=== PATIENT | male | born 1965 | race African-American/Black ===

== ENCOUNTER 2021-04-11 11:50 | Inpatient (IN) | payer OTHER ==
[~2021-04-11] VITALS: Ht 170.2 cm; Wt 83.0 kg
[2021-04-11] MEDS ORDERED: LORAZEPAM 1 MG TABLET FOR AGITATION/ANXIETY PO PRN (13:00)
[2021-04-11] MEDS ORDERED: MAGNESIUM HYDROXIDE 30 ML UDC PO PRN (15:30)
[2021-04-11] MEDS ORDERED: ACETAMINOPHEN ES 500 MG TABLET PO PRN (15:30)
[2021-04-11] MEDS ORDERED: IBUPROFEN 200 MG TABLET PO PRN (15:30)
--- NOTE | 2021-04-11 15:33 | NUR ---
GPS/RN RECEIVED MEDICAL TRIAL PT AMBULATORY A/O X 4 NO DISTRESS NOTED. ON FACE TO FACE ASSESSMENT NO SI OR HI REPORTED. ADMITTING ORDERER FROM DR RATLIFF RECEIVED AND CARRIED OUT. ORIENTED TO THE UNIT.
--- NOTE | 2021-04-11 15:41 | NUR ---
Rapid covid test done by me NEGATIVE result, sent official result to laboratory
--- NOTE | 2021-04-11 15:54 | NUR ---
Gave Rapid result specimen given to [facility]
[2021-04-11 16:00] VITALS: BP 142/70
--- NOTE | 2021-04-11 19:30 | NUR ---
GPS RN NOTE, RECEIVED PATIENT AWAKE AND IN BED, NO S/S OR COMPLAINTS OF PAIN AT THIS TIME. PATIENT IS DISPLAYING NO S/S OF APPARENT DISTRESS AT THIS TIME. PATIENT BREATHING IS UNLABORED WITH EQUAL RISE AND FALL OF THE CHEST. PATIENT IS ALERT AND ORIENTED X 3 ON ROOM AIR WITH A SPO2 98%. PATIENT IS COMPLIANT WITH MEDICATIONS, PARANOID, CALM, AND COOPERATIVE. PATIENT DENIES SUICIDAL AND HOMICIDAL IDEATIONS AT THIS TIME. PATIENT EDUCATED ON THE USE OF THE CALL GUY. PATIENT BED SIDE RAILS UP X 2 FOR SAFETY. PATIENT BED IS LOCKED, LOW, WITH BED ALARM ON. WILL CONTINUE TO MONITOR THIS PATIENT Q15 MINUTES WITH THE HELP OF STAFF TO MAINTAIN SAFETY.
[2021-04-11 21:18] VITALS: BP_SYST 129; BP_SYST 154; BP_DIAS 75; BP_DIAS 88
[2021-04-11] MEDS: RISPERDAL 3 MG PO SCH (21:32)
[2021-04-11] MEDS: ZOLPIDEM TARTRATE 10 MG TABLET PO PRN (22:16)
--- NOTE | 2021-04-11 22:17 | NUR ---
GPS RN NOTE, PATIENT HAS A COMPLAINT OF NOT BEING ABLE TO SLEEP AND IS REQUESTING AMBIEN AT THIS TIME. PATIENT VITAL SIGNS ARE STABLE. GAVE AMBIEN 10MG PO HS PRN ORDERED. WILL REASSESS FOR INSOMNIA AND I WILL CONTINUE TO MONITOR THIS PATIENT WITH THE HELP OF STAFF.
[2021-04-12 08:00] VITALS: BP 127/74
[2021-04-12] MEDS: AMLODIPINE BESYLATE 5 MG TABLET PO SCH (08:42)
--- NOTE | 2021-04-12 09:11 | NUR ---
Received pt. denita in his room, responsive to staffs, no distress and no agitation noted. Ate 100% for breakfst and compliant on meds. Pt. went for fresh air break, needs attended and will continue to monitor for safety.
[2021-04-12 16:00] VITALS: BP 135/30
[2021-04-12 20:07] VITALS: BP 102/64
[2021-04-12] MEDS: RISPERDAL 3 MG PO SCH (21:21)
[2021-04-12] MEDS: ZOLPIDEM TARTRATE 10 MG TABLET PO PRN (21:21)
[2021-04-13 08:00] VITALS: BP 139/79
[2021-04-13] MEDS: AMLODIPINE BESYLATE 5 MG TABLET PO SCH (08:48)
--- NOTE | 2021-04-13 15:17 | NUR ---
RN-CO: PATIENT IS CALM AND COOPERATIVE TO CARE, VISIBLE IN THE UNIT HE WATCHES TV MOST OF THE TIME AND LISTENS TO MUSIC. HE IS A LITTLE GUARDED TO STAFF AND PEERS. PT SLEPT 8 HOURS AND ATE > 80% OF EACH MEAL.
[2021-04-13 16:00] VITALS: BP 144/86
--- NOTE | 2021-04-13 19:50 | NUR ---
GPS RN NOTES: RECEIVED PATIENT SITTING IN HALLWAY, AWAKE, ALERT AND ORIENTED X3. CALM AND COOPERATIVE, PASSIVE. DENIES SI/HI AT THIS TIME. DENIES PAIN. NO S/S OF DISTRESS, RESPIRATION EVEN AND UNLABORED WITH EQUAL RISE AND FALL OF THE CHEST, ON ROOM AIR. WILL CONTINUE TO MONITOR Q15 FOR SAFETY, MOOD AND BEHAVIOR.
[2021-04-13 20:00] VITALS: BP 112/61
[2021-04-13] MEDS: ZOLPIDEM TARTRATE 10 MG TABLET PO PRN (21:56)
--- NOTE | 2021-04-13 21:58 | NUR ---
GPS RN NOTES: PATIENT REQUESTED FOR SLEEP MEDICATION. AMBIEN 10MG GIVEN PO PRN ORDERED AT 2156. WILL CONTINUE TO MONITOR.
[2021-04-13] MEDS ORDERED: risperiDONE 1 MG TABLET PO SCH (22:00)
--- NOTE | 2021-04-14 06:38 | NUR ---
GPS RN CLOSING NOTES: PATIENT IS AWAKE, A/O X3. PATIENT SLEPT 6HRS THIS SHIFT. PATIENT WENT OUT OF THE UNIT TWICE FOR FRESH AIR BREAKS THIS SHIFT. NO BEHAVIORAL ISSUES THIS SHIFT. PATIENT HAS NO S/S OF DISTRESS. RESPIRATION EVEN AND UNLABORED WITH EQUAL RISE AND FALL OF THE CHEST, ON ROOM AIR. ALL PATIENT CARE NEEDS HAVE BEEN MET ANTICIPATED. WILL CONTINUE TO MONITOR AND ENDORSE TO AM SHIFT.
[2021-04-14 08:18] VITALS: BP 117/70
[2021-04-14] MEDS: AMLODIPINE BESYLATE 5 MG TABLET PO SCH (09:01)
[2021-04-14 16:24] VITALS: BP 108/54
--- NOTE | 2021-04-14 17:38 | NUR ---
RN-CO: DR RATLIFF STATED THAT HE WILL GIVE MORE ORDERS IF PT'S LABS ARE TAKEN.
[2021-04-14 20:00] VITALS: BP 100/54
--- NOTE | 2021-04-14 20:13 | NUR ---
GPS-RN NOTES: RECEIVED PATIENT IN HIS ROOM, AWAKE, ALERT AND ORIENTED X3. NO S/SX OF ACUTE RESPIRATORY DISTRESS NOTED. PATIENT IS COOPERATIVE AND PLEASANT. PT DENIES ANY SI/HI AT THIS TIME. DENIES AUDITORY/VISUAL HALLUCINATIONS. PATIENT IS CURRENTLY ON INVESTIGATIONAL MEDICATION WITH NO ADVERSE REACTIONS NOTED. NO C/O PAIN OR DISCOMFORT AT THIS TIME. SAFETY PRECAUTIONS IN PLACE. WILL CONTINUE TO MONITOR Q15MIN ROUNDS FOR SAFETY AND BEHAVIOR. Addendum: 04/15/21 at 0234 by NATHANIEL PRITCHARD RN WRONG DOCUMENTATION - PATIENT IS CURRENTLY ON INVESTIGATIONAL MEDICATION WITH NO ADVERSE REACTIONS NOTED.
[2021-04-14] MEDS: RISPERDAL 3 MG PO SCH (21:22)
[2021-04-14] MEDS: ZOLPIDEM TARTRATE 10 MG TABLET PO PRN (21:55)
--- NOTE | 2021-04-14 21:56 | NUR ---
GPS-RN NOTES: INSOMNIA PATIENT C/O INABILITY TO SLEEP. PRN AMBIEN 10MG PO GIVEN ORDERED. WILL CONTINUE TO MONITOR.
[2021-04-15 08:00] VITALS: BP 123/70
[2021-04-15] MEDS: AMLODIPINE 5 MG PO SCH (09:36)
[2021-04-15 16:00] VITALS: BP 122/70
--- NOTE | 2021-04-15 20:12 | NUR ---
GPS-RN NOTES: RECEIVED PATIENT IN HIS ROOM, AWAKE, ALERT AND ORIENTED X3. NO S/SX OF ACUTE RESPIRATORY DISTRESS NOTED. PATIENT IS COOPERATIVE AND PLEASANT. PATIENT DENIES ANY SI OR HI AT THIS TIME. PATIENT ADMITS TO HEARING VOICES. PT STATES, HE HEARS SOMEONE IS TALKING. NO C/O PAIN OR DISCOMFORT AT THIS TIME. SAFETY PRECAUTIONS IN PLACE. WILL CONTINUE TO MONITOR Q15MIN ROUNDS FOR SAFETY AND BEHAVIOR.
[2021-04-15] MEDS: RISPERDAL 3 MG PO SCH (21:10)
[2021-04-15] MEDS: ZOLPIDEM TARTRATE 10 MG TABLET PO PRN (21:43)
--- NOTE | 2021-04-15 21:43 | NUR ---
GPS-RN NOTES: INSOMNIA PATIENT C/O INABILITY TO SLEEP. PRN AMBIEN 10MG PO GIVEN ORDERED. WILL CONTINUE TO MONITOR.
[2021-04-16 08:00] VITALS: BP 143/78
[2021-04-16] MEDS: AMLODIPINE 5 MG PO SCH (08:04)
--- NOTE | 2021-04-16 09:15 | NUR ---
RN-CO: RECEIVED PATIENT AWAKE. DENIED PAIN AND DISCOMFORTS. COMPLIANT WITH MEDICATIONS AND TREATMENT. HE STATED THAT HE STILL HEARS "VOICES" TELLING HIM DIFFERENT THINGS BUT HE REFUSED TO ELABORATE. HE ALSO SAID THAT HE SEES PEOPLE WITH MASKS IN HIS ROOM. I WILL CONTINUE TO MONITOR AND NOTIFY .
[2021-04-16 16:00] VITALS: BP 121/72
--- NOTE | 2021-04-16 19:48 | NUR ---
GPS RN NOTES RECEIVED STANDING BY THE HALLWAY LISTENING TO MUSIC,A/O X4,AMBULATORY,DENIES ANY DISCOMFORTS,ASKING ONLY FOR SLEEPING PILL TONIGHT.WILL CONTINUE TO MONITOR BEHAVIOR.
--- NOTE | 2021-04-16 19:51 | NUR ---
GPS RN NOTES WENT DOWN TO SMOKE
[2021-04-16 20:00] VITALS: BP 121/73
--- NOTE | 2021-04-16 20:35 | NUR ---
GPS RN NOTES BACK TO UNIT AFTER SMOKING
[2021-04-16] MEDS: RISPERDAL 3 MG PO SCH (21:19)
[2021-04-16] MEDS: ZOLPIDEM TARTRATE 10 MG TABLET PO PRN (21:21)
--- NOTE | 2021-04-16 21:21 | NUR ---
GPS RN NOTES CLINICAL TRIAL DUE PO MEDS ADMINISTERED ALONG WITH SLEEPING PILL AMBIEN 10MG PO PER PATIENT REQUEST.HE WANTS TO SLEEP EARLY
[2021-04-16 21:29] VITALS: BP 121/73
--- NOTE | 2021-04-17 01:07 | NUR ---
GPS RN NOTES IN ROOM SLEEPING
[2021-04-17 08:00] VITALS: BP 123/73
[2021-04-17] MEDS: AMLODIPINE 5 MG PO SCH (08:10)
--- NOTE | 2021-04-17 09:15 | NUR ---
Received pt. awake in his room, responsive to staffs, no distress and no agitation noted. ate 100% for breakfast, compliant on meds. Pt. went for fresh air break and needs attended. Will continue to monitor for safety.
[2021-04-17] MEDS ORDERED: LORAZEPAM 1 MG TABLET FOR AGITATION/ANXIETY PO PRN (15:00)
[2021-04-17 16:00] VITALS: BP 128/64
[2021-04-17 20:00] VITALS: BP 120/72
[2021-04-17 20:05] VITALS: BP 120/72
[2021-04-17] MEDS: ZOLPIDEM TARTRATE 10 MG TABLET PO PRN (21:22)
--- NOTE | 2021-04-17 21:23 | NUR ---
RN NOTE: INSOMNIA PATIENT VERBALIZED THAT HE IS UNABLE TO SLEEP & REQUESTED TO TAKE SLEEPING MEDICINE AT THIS TIME. PRN AMBIEN 10 MG PO ADMINISTERED. WILL CONTINUE TO MONITOR.
[2021-04-17] MEDS ORDERED: RISPERDAL 1 MG PO SCH (22:00)
--- NOTE | 2021-04-18 06:44 | NUR ---
GPS RN CLOSING NOTE: PATIENT IS AWAKE & WENT OUT OF THE UNIT FOR FRESH AIR AT THIS TIME, A/O X3. PATIENT SLEPT WELL AT NIGHT. NO BEHAVIORAL ISSUES THIS SHIFT. PATIENT HAS NO S/S OF DISTRESS. RESPIRATION EVEN AND UNLABORED WITH EQUAL RISE AND FALL OF THE CHEST, ON ROOM AIR. ALL PATIENT CARE NEEDS HAVE BEEN MET ANTICIPATED. WILL CONTINUE TO MONITOR AND ENDORSE TO AM SHIFT.
[2021-04-18] MEDS: AMLODIPINE 5 MG PO SCH (09:09)
[2021-04-18 16:00] VITALS: BP 126/78
--- NOTE | 2021-04-18 19:33 | NUR ---
GPS RN NOTE, RECEIVED PATIENT AWAKE AND IN BED, NO S/S OR COMPLAINTS OF PAIN AT THIS TIME. PATIENT IS DISPLAYING NO S/S OF APPARENT DISTRESS AT THIS TIME. PATIENT BREATHING IS UNLABORED WITH EQUAL RISE AND FALL OF THE CHEST. PATIENT IS ALERT AND ORIENTED X 3 ON ROOM AIR WITH A SPO2 98%. PATIENT IS COMPLIANT WITH MEDICATIONS, PARANOID, RESTLESS, AND COOPERATIVE. PATIENT DENIES SUICIDAL AND HOMICIDAL IDEATIONS AT THIS TIME. PATIENT EDUCATED ON THE USE OF THE CALL GUY. PATIENT BED SIDE RAILS UP X 2 FOR SAFETY. PATIENT BED IS LOCKED, LOW, WITH BED ALARM ON. WILL CONTINUE TO MONITOR THIS PATIENT Q15 MINUTES WITH THE HELP OF STAFF TO MAINTAIN SAFETY.
[2021-04-18] MEDS: ZOLPIDEM TARTRATE 10 MG TABLET PO PRN (21:10)
[2021-04-18] MEDS: RISPERDAL 1 MG PO SCH (21:10)
[2021-04-19 08:00] VITALS: BP 124/73
[2021-04-19] MEDS: AMLODIPINE 5 MG PO SCH (09:36)
[2021-04-19 16:00] VITALS: BP 126/81
--- NOTE | 2021-04-19 19:50 | NUR ---
GPS RN NOTES: RECEIVED PATIENT IN ROOM, AWAKE, ALERT AND ORIENTED X3. APPROPRIATE AFFECT, CALM AND COOPERATIVE, PASSIVE. ABLE TO MAKE NEEDS KNOWN. PATIENT WAS SEEN INTERACTING WITH ROOMMATE. DENIES SI/HI AT THIS TIME. DENIES PAIN. NO S/S OF DISTRESS, RESPIRATION EVEN AND UNLABORED WITH EQUAL RISE AND FALL OF THE CHEST, ON ROOM AIR. WILL CONTINUE TO MONITOR Q15 FOR SAFETY, MOOD AND BEHAVIOR.
[2021-04-19 20:22] VITALS: BP 116/74
[2021-04-19] MEDS: RISPERDAL 1 MG PO SCH (21:07)
[2021-04-19] MEDS: ZOLPIDEM TARTRATE 10 MG TABLET PO PRN (21:40)
--- NOTE | 2021-04-19 21:45 | NUR ---
GPS RN NOTES: PATIENT REQUESTED FOR SLEEP MED. AMBIEN 10MG/1TAB GIVEN PO PRN ORDERED AT 2140. WILL WILL CONTINUE TO MONITOR.
--- NOTE | 2021-04-20 07:03 | NUR ---
GPS RN CLOSING NOTES: PATIENT IS AWAKE, A/O X3. PATIENT SLEPT 7HRS THIS SHIFT. PATIENT WENT OUT OF THE UNIT 4 TIMES FOR SMOKE BREAKS THIS SHIFT. NO BEHAVIORAL ISSUES THIS SHIFT. PATIENT HAS NO S/S OF DISTRESS. RESPIRATION EVEN AND UNLABORED WITH EQUAL RISE AND FALL OF THE CHEST, ON ROOM AIR. ALL PATIENT CARE NEEDS HAVE BEEN MET ANTICIPATED. WILL CONTINUE TO MONITOR AND ENDORSE TO AM SHIFT.
[2021-04-20] MEDS: AMLODIPINE 5 MG PO SCH (08:39)
[2021-04-20 16:00] VITALS: BP 119/63
[2021-04-20 20:29] VITALS: BP 114/76
[2021-04-20] MEDS: ZOLPIDEM TARTRATE 10 MG TABLET PO PRN (21:14)
--- NOTE | 2021-04-20 21:18 | NUR ---
GPS RN NOTES: PATIENT REQUESTED FOR SLEEP MED. AMBIEN 10MG/1TAB GIVEN PO PRN ORDERED AT 2113. WILL WILL CONTINUE TO MONITOR.
[2021-04-21 08:00] VITALS: BP 123/66
[2021-04-21] MEDS: AMLODIPINE 5 MG PO SCH (08:02)
--- NOTE | 2021-04-21 09:37 | NUR ---
RN NOTE: ARECEIVED PT LYING IN BED. NO ACUTE DISTRESS NOTED. VSS, AFEBRILE NO SOB NOTED. PT A+OX3, ABLE TO MAKE NEEDS KNOWN. PT IS CALM AND COOPERATIVE. AMBULATORY AND CONTINENT. INDEPENDENT WITH ADLS AND PO INTAKE.COMPLIANT WITH MEDICATION ADMINISTRATION AND PLAN OF CARE. NO S/SX OF ADVERSE REACTION FROM MEDICATIONS. WILL CONT TO MONITOR FOR SAFETY AND BEHAVIOR PER PROTOCOL
[2021-04-21 16:00] VITALS: BP 129/68
[2021-04-21 20:00] VITALS: BP 116/74
[2021-04-21] MEDS: ZOLPIDEM TARTRATE 10 MG TABLET PO PRN (21:53)
--- NOTE | 2021-04-21 21:53 | NUR ---
GPS-RN NOTES: INSOMNIA; PATIENT C/O INABILITY TO SLEEP. PRN AMBIEN 10MG PO ORDERED. WILL CONTINUE TO MONITOR.
--- NOTE | 2021-04-22 06:43 | NUR ---
GPS RN NOTE: PATIENT SLEPT WELL AT NIGHT. PATIENT WENT OUT OF THE UNIT 3 TIMES FOR SMOKE BREAKS THIS SHIFT. NO BEHAVIORAL ISSUES THIS SHIFT. PATIENT HAS NO S/S OF DISTRESS NOTED. ALL PATIENT CARE NEEDS HAVE BEEN MET ANTICIPATED. WILL CONTINUE TO MONITOR FOR SAFETY AND BEHAVIOR.
[2021-04-22 08:00] VITALS: BP 141/84
[2021-04-22] MEDS: AMLODIPINE 5 MG PO SCH (08:16)
--- NOTE | 2021-04-22 11:16 | NUR ---
RN-CO: PATIENT IS FOCUS ON MUSIC, RESPONDING TO INTERNAL STIMULI, A LITTLE SUSPICIOUS TO STAFF WHEN ASKED. GO OUT FOR SMOKE BREAK. VISIBLE IN THE DINING ROOM. COOPERATIVE TO CARE.
[2021-04-22 16:00] VITALS: BP 136/70
[2021-04-22 20:00] VITALS: BP 136/82
--- NOTE | 2021-04-22 20:05 | NUR ---
GPS RN NOTES: RECEIVED PATIENT IN ROOM, AWAKE, ALERT AND ORIENTED X3. FLAT AFFECT, CALM AND COOPERATIVE, PASSIVE, GUARDED. PATIENT DENIES SI/HI AT THIS TIME. DENIES PAIN. NO S/S OF DISTRESS, RESPIRATION EVEN AND UNLABORED WITH EQUAL RISE AND FALL OF THE CHEST, ON ROOM AIR WIT SPO2 OF 99%. WILL CONTINUE TO MONITOR Q15 FOR SAFETY, MOOD AND BEHAVIOR.
[2021-04-22] MEDS: ZOLPIDEM TARTRATE 10 MG TABLET PO PRN (21:16)
--- NOTE | 2021-04-22 21:18 | NUR ---
GPS RN NOTES: PATIENT REQUESTED FOR SLEEP MED. AMBIEN 10MG/1TAB GIVEN PO PRN ORDERED AT 2115. WILL WILL CONTINUE TO MONITOR.
--- NOTE | 2021-04-23 06:45 | NUR ---
GPS RN CLOSING NOTES: PATIENT IS CURRENTLY SLEEPING. PATIENT SLEPT 7HRS THIS SHIFT. PATIENT WENT OUT OF THE UNIT ONCE FOR FRESH AIR BREAK THIS SHIFT. PATIENT HAS NO S/S OF DISTRESS. RESPIRATION EVEN AND UNLABORED WITH EQUAL RISE AND FALL OF THE CHEST, ON ROOM AIR. BED IS IN LOWEST POSITION AND LOCKED, SIDE RAILS UP X2 FOR SAFETY. ALL PATIENT CARE NEEDS HAVE BEEN MET ANTICIPATED. WILL CONTINUE TO MONITOR AND ENDORSE TO AM SHIFT.
[2021-04-23 08:00] VITALS: BP 135/80
[2021-04-23] MEDS: AMLODIPINE 5 MG PO SCH (08:20)
--- NOTE | 2021-04-23 09:37 | NUR ---
RN-CO:PATIENT IS OUT, WAS PICKED UP BY DR SON'S STAFF AT 8;45 AM.
[2021-04-23 16:00] VITALS: BP 127/68
[2021-04-23 20:00] VITALS: BP 118/62
--- NOTE | 2021-04-23 20:57 | NUR ---
GPS/BRICK TESTER NOTES: PT. IN HIS ROOM AWAKE. NO DISTRESS OR AGITATION NOTED. COOPERATIVE AND QUIET AT THIS TIME. NO C/O PAIN OR DISCOMFORT. SAFETY ENVIRONMENT OBSERVED AT ALL TIMES. WILL CONTINUE TO MONITOR Q 15 MIN FOR SAFETY AND BEHAVIOR.
[2021-04-23] MEDS: ZOLPIDEM TARTRATE 10 MG TABLET PO PRN (21:49)
[2021-04-24 08:00] VITALS: BP 152/75
[2021-04-24] MEDS: AMLODIPINE 5 MG PO SCH (08:27)
[2021-04-24] MEDS: INVEST MED Kar XT OR PLACEBO 50/20 MG PO SCH ×2 (09:48→22:00)
--- NOTE | 2021-04-24 10:12 | NUR ---
Pt. ate 100% for breakfast, compliant on meds. Pt. went for fresh air break and needs attended. No distress and no agitation noted. Will continue to monitor for safety.
--- NOTE | 2021-04-24 12:45 | NUR ---
RN-NOTES RECEIVED PATIENT AT 1200 NOON IN THE ROOM AWAKE,ALERT X4 ,NO ACUTE DISTRESS NOTED. RECEIVED ORDER FROM THE GUNSTOCK REPAIRER TO TRANSFER PATIENT TO ROOM [address] RATLIFF MADE AWARE OF THE TRANSFER.INTERLACER ACCOMPANIED PATIENT TO MS3 IN STABLE CONDITION A/O X4 AMBULATORY STEADY GAIT WITH ALL BELONGINGS. REPORT WAS GIVEN TO MERLIN ( HEALTH AND FITNESS PROFESSOR).
--- NOTE | 2021-04-24 13:00 | NUR ---
RECEIVED PATIENT FROM GPS. STABLE, A/O X4. STABLE ON ROOM AIR - NO SOB NOTED. NO DISTRESS/DISCOMFORT NOTED. PATIENT IS AMBULATORY. CLINICAL TRIAL. ENCOURAGED PATIENT TO CALL IF NEEDED. SAFETY MEASURES IN PLACE. CALL LIGHT WITHIN REACH, WILL CONTINUE TO MONITOR.
[2021-04-24 17:42] VITALS: BP 115/81
--- NOTE | 2021-04-24 19:19 | NUR ---
MS RN CLOSING NOTE PATIENT CURRENTLY SITTING IN BED, AWAKE. A/O X4. CLINICAL TRIAL PATIENT. STABLE ON ROOM AIR - NO SOB NOTED. NO DISTRESS/DISCOMFORT NOTED. NO IV ACCESS. ENCOURAGED PATIENT TO USE CALL LIGHT IF NEEDED. SAFETY MEASURES IN PLACE. WILL ENDORSE TO FINISH SANDER NURSE FOR ANGELO.
--- NOTE | 2021-04-24 19:45 | NUR ---
MS RN OPENING NOTES RECEIVED PATIENT SITTING IN BED, AWAKE. A/O X4. CLINICAL TRIAL PATIENT. STABLE ON ROOM AIR AND TOLERATING WELL. NO SOB NOTED. NO S/SX OF RESPIRATORY DISTRESS NOTED. NO IV ACCESS. SAFETY MEASURES IN PLACE: BED IN LOWEST, LOCKED POSITION, BRAKES ON, SIDERAILS UPx2. CALL LIGHT AND TABLE WITHIN REACH. WILL CONTINUE TO MONITOR.
[2021-04-24 20:00] VITALS: BP 115/72
[2021-04-24] MEDS: ZOLPIDEM TARTRATE 10 MG TABLET PO PRN (22:08)
--- NOTE | 2021-04-24 22:08 | NUR ---
PT REQUESTED JAVAD TO HELP WITH INSOMNIA. ADMINISTER PER MD ORDER. WILL CONTINUE TO MONITOR.
--- NOTE | 2021-04-25 06:47 | NUR ---
MS RN CLOSING NOTES PATIENT IN BED, AWAKE. A/O X4. CLINICAL TRIAL PATIENT. STABLE ON ROOM AIR AND TOLERATING WELL. NO SOB NOTED. NO S/SX OF RESPIRATORY DISTRESS NOTED. NO IV ACCESS. ALL NEEDS MET. SAFETY MEASURES IN PLACE: BED IN LOWEST, LOCKED POSITION, BRAKES ON, SIDERAILS UPx2. CALL LIGHT AND TABLE WITHIN REACH. WILL ENDORSE TO ONCOMING SHIFT.
[2021-04-25 08:00] VITALS: BP 128/79
--- NOTE | 2021-04-25 08:00 | NUR ---
RN OPENING NOTE PT AWAKE IN BED RESTING. A/O X4 AND UZBEK SPEAKING. ON RA WITH NO SOB OR RESPIRATORY DISTRESS. NO SIMULATION SOFTWARE ENGINEER. NO EDEMA. SELF AMBULATORY WITH BATHROOM PRIVILEGES. SKIN INTACT. REGULAR DIET. NO IV DUE TO STATUS CLINICAL TRIAL. LABS AND ORDERS REVIEWED. SAFETY MEASURES IN PLACE. SIDE RAILS RAISED. BED LOWERED. CALL LIGHT WITHIN REACH. WILL CONTINUE TO MONITOR.
[2021-04-25] MEDS: AMLODIPINE 5 MG PO SCH (09:35)
[2021-04-25] MEDS: INVEST MED Kar XT OR PLACEBO 50/20 MG PO SCH ×2 (10:00→22:01)
[2021-04-25 16:00] VITALS: BP 139/71
--- NOTE | 2021-04-25 18:17 | NUR ---
RN CLOSING NOTE PT AWAKE IN BED RESTING. A/O X4 AND BAHAMIAN SPEAKING. ON RA WITH NO SOB OR RESPIRATORY DISTRESS. NO WELDER PRODUCTION LINE ARC. NO EDEMA. SELF AMBULATORY WITH BATHROOM PRIVILEGES. SKIN INTACT. REGULAR DIET. NO IV DUE TO STATUS CLINICAL TRIAL. LABS AND ORDERS REVIEWED. SAFETY MEASURES IN PLACE. SIDE RAILS RAISED. BED LOWERED. CALL LIGHT WITHIN REACH. WILL GIVE REPORT TO NIGHT NURSE FOR ANGELO.
[2021-04-25 20:00] VITALS: BP 135/83
--- NOTE | 2021-04-25 21:53 | NUR ---
MS/TELE/RN ON INITIAL SHIFT ROUNDING, PATIENT WAS IN ROOM SITTING ON HIS BED AWAKE, ALERT, ORIENTED, COMFORTABLE, NO C/O PAIN, NO DISTRESS NOTED, INSTRUCTED NOT TO EAT STARTING 20:00 FOR HIS STUDY MEDICINE AT 22:00. PATIENT VERBALIZED UNDERSTANDING.
[2021-04-25] MEDS: ZOLPIDEM TARTRATE 10 MG TABLET PO PRN (22:04)
--- NOTE | 2021-04-25 23:30 | NUR ---
MS/TELE/RN PATIENT IS SLEEPING AT THIS TIME, APPEAR COMFORTABLE, NO DISTRESS NOTED, CALL LIGHT IN REACH. WILL CONTINUE TO MONITOR.
--- NOTE | 2021-04-26 06:07 | NUR ---
MS/TELE/RN PATIENT IS AWAKE, NO CHANGE IN CONDITION. WENT DOWNSTAIRS, ALL NEEDS ATTENDED AT THIS TIME, WILL CONTINUE TO MONITOR.
--- NOTE | 2021-04-26 07:20 | NUR ---
MS/RN OPENING NOTES RECEIVED PATIENT SETTING ON BED AWAKE ALERT AND ORIENTED X4. PATIENT IS ON ROOM AIR. PATIENT IN NO APPARENT RESPIRATORY DISTRESS NOTED. NO COMPLAINED OF PAIN NOTED AT THIS TIME. WILL CONTINUE TO MONITOR.
[2021-04-26 08:00] VITALS: BP 139/78
[2021-04-26] MEDS: AMLODIPINE 5 MG PO SCH (08:17)
[2021-04-26] MEDS: INVEST MED Kar XT OR PLACEBO 50/20 MG PO SCH ×2 (10:12→22:00)
[2021-04-26 16:09] VITALS: BP 149/105
--- NOTE | 2021-04-26 19:22 | NUR ---
MS/RN CLOSING NOTES PATIENT IS ALERT AND ORIENTED X4. PATIENT IS ON ROOM AIR. PATIENT IN NO APPARENT RESPIRTAORY DISTRESS NOTED. NO COMPLAINED OF PAIN NOTED AT THIS TIME. NO IV ACCESS MD WAS AWARE. NO CHANGED OF CONDITION. WILL ENDORSED TO MARINO SPRAGUE FOR ANGELO.
[2021-04-26 20:00] VITALS: BP 154/89
--- NOTE | 2021-04-26 20:00 | NUR ---
Patient is A&Ox4. Denies any hallucinations or delusions at this time. Resting comfortably in bed. Downstairs smoking when checked on earlier. Reminded of investigational med to be given at 2200 promptly.
[2021-04-26] MEDS: ZOLPIDEM TARTRATE 10 MG TABLET PO PRN (22:06)
--- NOTE | 2021-04-27 06:25 | NUR ---
Patient has been A&Ox4. Sleeping well after ambien admin though easy to wake. Denies any side effects from investigational medication. No behaviors this shift.
--- NOTE | 2021-04-27 07:19 | NUR ---
MS VALENZUELA OPENING NOTES RECEIVED PATIENT IN HIS ROOM TIDYING UP HIS CLOTHES. A/O X4. ABLE TO MAKE NEEDS KNOWN, NO C/O PAIN OR ANY DISCOMFORTS AT THIS TIME. ON ROOM AIR, BREATHING EVEN AND UNLABORED. CALL LIGHT W/IN EASY REACH. WILL CONTINUE TO MONITOR PT. Addendum: 04/27/21 at 1128 by GREGORY DESAI RN ERROR: WRONG PATIENT. SORRY!
[2021-04-27] MEDS: AMLODIPINE 5 MG PO SCH (08:11)
[2021-04-27] MEDS: INVEST MED Kar XT OR PLACEBO 50/20 MG PO SCH ×2 (10:10→22:00)
[2021-04-27 16:00] VITALS: BP 139/96
[2021-04-27 16:30] VITALS: BP 139/96
--- NOTE | 2021-04-27 16:50 | NUR ---
MS/RN NOTES PATIENT REQUEST FOR ATIVAN 1MG 1 TAB P.O. PATIENT VERBALIZED FOR FEELING ANXIOUS. WILL CONTINUE TO MONITOR.
[2021-04-27] MEDS: LORAZEPAM 1 MG TABLET FOR AGITATION/ANXIETY PO PRN (16:54)
--- NOTE | 2021-04-27 18:42 | NUR ---
MS/RN CLOSING NOTES PATIENT IS ALERT AND ORIENTED X4. PATIENT IS ON ROOM AIR. PATIENT IN NO APPARENT RESPIRATORY DISTRESS NOTED. NO COMPLAINED OF PAIN NOTED AT THIS TIME. NO IV ACCESS MD WAS AWARE. NO CHANGED OF CONDITION. WILL ENDORSED TO LENS FINISHER FOR ANGELO.
--- NOTE | 2021-04-27 19:53 | NUR ---
MS RN OPENING NOTE RECEIVED PT AWAKE IN BED. A/O X4. PT IS STABLE ON ROOM AIR. NO SOB OR S/S OF RESPIRATORY DISTRESS NOTED. PT HAS NO C/O PAIN OR DISCOMFORT AT THIS TIME. NO IV ACCESS DUE TO CLINICAL TRIAL STATUS. SAFETY PRECAUTIONS MAINTAINED. BED IN LOWEST LOCKED POSITION, HOB ELEVATED, SIDE RAILS UP X2. CALL LIGHT AND TABLE WITHIN REACH. WILL CONTINUE WITH PLAN OF CARE.
[2021-04-27 20:00] VITALS: BP 128/63
[2021-04-27] MEDS: ZOLPIDEM TARTRATE 10 MG TABLET PO PRN (22:12)
--- NOTE | 2021-04-27 23:15 | NUR ---
TRANSFERRED PT TO NICOLAS MORGAN FOR ANGELO.
--- NOTE | 2021-04-28 06:20 | NUR ---
MS/RN CLOSING NOTE PATIENT CURRENTLY RESTING IN BED. AWAKE, ALERT AND ORIENTED X 4. ABLE TO MAKE NEEDS KNOWN. DENIES PAIN AT THIS TIME. CONTINUES ON ROOM AIR WITH NO S/SX OF RESPIRATORY DISTRESS NOTED. NO IV ACCESS AT THIS TIME. CONTINUES ON CLINICAL TRIAL. CONTINUES ON INVESTIGATIONAL MEDICATIONS. CALL LIGHT WITHIN REACH. ASPIRATION, FALL AND SAFETY PRECAUTIONS MAINTAINED. WILL CONTINUE TO MONITOR.
--- NOTE | 2021-04-28 07:47 | NUR ---
MS RN OPENING NOTES RECEIVED PATIENT IN BED, AWAKE, A/OX4. PATIENT ON ROOM AIR; BREATHING EVEN AND UNLABORED AT THIS TIME. NO COMPLAINS OF PAIN. SAFETY PRECAUTIONS IN PLACE; BED IN LOW POSITION AND LOCKED, RAILS UP X2, CALL LIGHT WITHIN REACH. WILL CONTINUE TO MONITOR PATIENT.
[2021-04-28] MEDS: AMLODIPINE 5 MG PO SCH (08:04)
[2021-04-28] MEDS: LORAZEPAM 1 MG TABLET FOR AGITATION/ANXIETY PO PRN ×3 (08:05→20:42)
--- NOTE | 2021-04-28 08:05 | NUR ---
MS RN NOTES PATIENT ANXIOUS; REQUESTING PRN ATIVAN. PRN ATIVAN ADMINISTERED.
[2021-04-28 08:16] VITALS: BP 152/78
[2021-04-28] MEDS: INVEST MED Kar XT OR PLACEBO 50/20 MG PO SCH ×2 (10:00→22:02)
--- NOTE | 2021-04-28 14:15 | NUR ---
MS RN NOTES PATIENT ANXIOUS; REQUESTING PRN ATIVAN. PRN ATIVAN ADMINISTERED.
[2021-04-28 16:30] VITALS: BP 138/86
--- NOTE | 2021-04-28 18:46 | NUR ---
MS RN CLOSING NOTES PATIENT REMAINS IN BED, AWAKE, A/OX4. PATIENT ON ROOM AIR; BREATHING EVEN AND UNLABORED. NO COMPLAINS OF PAIN. ALL NEEDS ATTENDED DURING THE DAY. SAFETY PRECAUTIONS IN PLACE; BED IN LOW POSITION AND LOCKED, RAILS UP X2, CALL LIGHT WITHIN REACH. WILL ENDORSE TO WASH TANK TENDER NURSE.
--- NOTE | 2021-04-28 19:30 | NUR ---
MS/TELE/RN PATIENT IS IN ROOM AWAKE, ALERT, ORIENTED, COMFORTABLE, NO C/O PAIN, NO DISTRESS NOTED, CALL LIGHT IN REACH. WILL MONITOR.
[2021-04-28 20:34] VITALS: BP 137/93
[2021-04-28] MEDS: ZOLPIDEM TARTRATE 10 MG TABLET PO PRN (22:02)
--- NOTE | 2021-04-28 23:20 | NUR ---
MS/TELE/RN PATIENT IS SLEEPING AT THIS TIME, APPEAR COMFORTABLE, BREATHING EVEN AND UNLABORED, CALL LIGHT IN REACH. WILL CONTINUE TO MONITOR.
--- NOTE | 2021-04-29 06:06 | NUR ---
MS/TELE/RN PATIENT IS OUT OF THE ROOM AT THIS TIME. GOOD SLEEP NOTED DURING THE SHIFT, ALL NEEDS ATTENDED AT THIS TIME, WILL CONTINUE TO MONITOR.
[2021-04-29 08:00] VITALS: BP 131/87
[2021-04-29] MEDS: AMLODIPINE 5 MG PO SCH (08:10)
[2021-04-29] MEDS: LORAZEPAM 1 MG TABLET FOR AGITATION/ANXIETY PO PRN ×3 (08:10→20:30)
[2021-04-29] MEDS: INVEST MED Kar XT OR PLACEBO 50/20 MG PO SCH ×2 (10:09→21:58)
[2021-04-29 16:00] VITALS: BP 141/85
--- NOTE | 2021-04-29 18:32 | NUR ---
MS RN CLOSING NOTES PATIENT REMAINS IN BED, AWAKE, A/OX4. PATIENT ON ROOM AIR; BREATHING EVEN AND UNLABORED. NO COMPLAINS OF PAIN. ALL NEEDS ATTENDED DURING THE DAY. SAFETY PRECAUTIONS IN PLACE; BED IN LOW POSITION AND LOCKED, RAILS UP X2, CALL LIGHT WITHIN REACH. WILL ENDORSE TO PUTTY MAKER NURSE.
[2021-04-29 20:00] VITALS: BP 127/85
--- NOTE | 2021-04-29 20:22 | NUR ---
ms rn opening received patient a/ox4. no s/s of apparent distress, tolerating room air. denies pain. no iv. not exhibiting any s/s of akathisia, EPS, nor psych instability. will cont. with plan of care.
--- NOTE | 2021-04-29 20:31 | NUR ---
ms rn note Ativan given at this time per patient request.
[2021-04-29] MEDS: ZOLPIDEM TARTRATE 10 MG TABLET PO PRN (22:00)
--- NOTE | 2021-04-29 22:01 | NUR ---
ms rn note given ambien per patient request.
--- NOTE | 2021-04-30 07:30 | NUR ---
RN MS NOTES PT AWAKE, ALERT AND ORIENTED, SITTING IN BED, NO COMPLAINT OF PAIN OR ANY DISCOMFORT, CALL LIGHT WITHIN REACH, NEEDS ATTENDED.
[2021-04-30 08:00] VITALS: BP 138/94
[2021-04-30] MEDS: LORAZEPAM 1 MG TABLET FOR AGITATION/ANXIETY PO PRN ×2 (08:01→14:41)
[2021-04-30] MEDS: AMLODIPINE 5 MG PO SCH (09:13)
[2021-04-30] MEDS: INVEST MED Kar XT OR PLACEBO 50/20 MG PO SCH ×2 (09:58→22:03)
[2021-04-30 16:06] VITALS: BP 129/86
--- NOTE | 2021-04-30 18:11 | NUR ---
RN MS NOTES PT IN HIS ROOM, AWAKE, ALERT AND ORIENTED, DENIES PAIN OR ANY DISCOMFORT, NO BEHAVIOR PROBLEM NOTED, COMPLIANT WITH MEDS, SEEN BY DR. RATLIFF, AMBULATES ALONG THE HALLWAY WITH STEADY GAIT, NEEDS ATTENDED.
[2021-04-30 20:00] VITALS: BP 138/84
--- NOTE | 2021-04-30 20:00 | NUR ---
RECEIVED PATIENT IN BED, ALERT AND ORIENTED X4, CALM, NO COMPLAIN OF PAIN, BEHAVIOR APPROPRIATE, WILL GIVE INVESTIGATIONAL DRUG SCHEDULED.
[2021-04-30] MEDS: ZOLPIDEM TARTRATE 10 MG TABLET PO PRN (22:08)
--- NOTE | 2021-05-01 06:30 | NUR ---
CLINICAL TRIAL PATIENT, NO BEHAVIORAL DISTURBANCE, TAKES INVESTIGATIONL DRUG AT 2200. AMBIEN GIVEN AT BEDTIME.
[2021-05-01 08:00] VITALS: BP 143/90
[2021-05-01] MEDS: AMLODIPINE 5 MG PO SCH (08:29)
[2021-05-01] MEDS: LORAZEPAM 1 MG TABLET FOR AGITATION/ANXIETY PO PRN ×2 (08:29→14:32)
[2021-05-01] MEDS: INVEST MED Kar XT OR PLACEBO 50/20 MG PO SCH ×2 (09:55→22:00)
[2021-05-01 16:00] VITALS: BP 144/95
--- NOTE | 2021-05-01 18:37 | NUR ---
MS RN CLOSING NOTES PATIENT REMAINS IN BED, AWAKE, A/OX4. PATIENT ON ROOM AIR; BREATHING EVEN AND UNLABORED AT THIS TIME. NO COMPLAINS OF PAIN. SAFETY PRECAUTIONS IN PLACE; BED IN LOW POSITION AND LOCKED, RAILS UP X2, CALL LIGHT WITHIN REACH. WILL ENDORSE TO FIBERGLASS GRINDER NURSE.
--- NOTE | 2021-05-01 19:15 | NUR ---
RN OPENING NOTE PATIENT SITTING UP ON THE BED, AWAKE. PATIENT IS ABLE TO MAKE NEEDS KNOWN. PATIENT IS A CLINICAL TRIAL PATIENT OF DR. RATLIFF. PATIENT IS CALM AND COOPERATIVE, REMINDED PATIENT THAT INVESTIGATIONAL DRUG NEEDS TO BE TAKEN ON AN EMPTY STOMACH. SAFETY MEASURES IN PLACE: BED LOCKED AND IN LOWEST POSITION, CALL LIGHT WITHIN REACH, SIDE RAILS UP. WILL MONITOR PATIENT CLOSELY.
[2021-05-01 20:00] VITALS: BP 130/85
[2021-05-01] MEDS: ZOLPIDEM TARTRATE 10 MG TABLET PO PRN (22:05)
--- NOTE | 2021-05-02 07:56 | NUR ---
RN OPENING NOTE PT AWAKE IN BED RESTING. A/O X4 AND AZERI SPEAKING. ON RA WITH NO SOB OR RESPIRATORY DISTRESS. NO JOB INTERVIEWER. NO EDEMA. SELF AMBULATORY WITH BATHROOM PRIVILEGES. SKIN INTACT. REGULAR DIET. NO IV DUE TO STATUS CLINICAL TRIAL. LABS AND ORDERS REVIEWED. SAFETY MEASURES IN PLACE. SIDE RAILS RAISED. BED LOWERED. CALL LIGHT WITHIN REACH. WILL CONTINUE TO MONITOR.
[2021-05-02] MEDS: LORAZEPAM 1 MG TABLET FOR AGITATION/ANXIETY PO PRN (08:02)
[2021-05-02] MEDS: AMLODIPINE 5 MG PO SCH (08:02)
[2021-05-02 08:12] VITALS: BP 144/85
[2021-05-02] MEDS: INVEST MED Kar XT OR PLACEBO 50/20 MG PO SCH ×2 (10:00→22:09)
[2021-05-02 15:51] VITALS: BP 133/82
[2021-05-02] MEDS: MAG HYDROX/AL HYDROX/SIMETH 30 ML UDC PO PRN (17:38)
--- NOTE | 2021-05-02 17:53 | NUR ---
RN CLOSING NOTE PT AWAKE IN BED RESTING. A/O X4 AND DJIBOUTIAN SPEAKING. ON RA WITH NO SOB OR RESPIRATORY DISTRESS. NO PRODUCTION CONTROL PLANNER. NO EDEMA. SELF AMBULATORY WITH BATHROOM PRIVILEGES. SKIN INTACT. REGULAR DIET. NO IV DUE TO STATUS CLINICAL TRIAL. LABS AND ORDERS REVIEWED. SAFETY MEASURES IN PLACE. SIDE RAILS RAISED. BED LOWERED. CALL LIGHT WITHIN REACH. WILL GIVE REPORT TO NIGHT NURSE FOR ANGELO.
--- NOTE | 2021-05-02 19:42 | NUR ---
MS RN OPENING NOTES Patient is A&Ox4. awake, watching TV. States he has not been experiencing any side effects from medication but he does feel paranoia like people are out to get him and he had hallucination while watching a movie earlier today that a character was talking to him. Patient reported these side effects to Dr. Jackson earlier today per patient.
[2021-05-02] MEDS: ZOLPIDEM TARTRATE 10 MG TABLET PO PRN (22:16)
--- NOTE | 2021-05-03 06:26 | NUR ---
MS RN CLOSING NOTES Patient has been A&Ox4. VSS. No behaviors overnight. Still denies side effects from investigational meds -no visible side effects either.
[2021-05-03] MEDS: LORAZEPAM 1 MG TABLET FOR AGITATION/ANXIETY PO PRN ×2 (07:41→21:56)
[2021-05-03 08:00] VITALS: BP 124/82
--- NOTE | 2021-05-03 08:00 | NUR ---
MS RN OPENING NOTE RECEIVED PATIENT LYING IN BED, AWAKE. A/O X4. CLINICAL TRIAL PATIENT. STABLE ON ROOM AIR - NO SOB NOTED. NO DISTRESS/DISCOMFORT NOTED. NO IV ACCESS. REQUESTING MEDICATION FOR ANXIETY - WILL ADMINISTER. ENCOURAGED PATIENT TO USE CALL LIGHT IF NEEDED. SAFETY MEASURES IN PLACE. WILL CONTINUE TO MONITOR.
[2021-05-03] MEDS: AMLODIPINE 5 MG PO SCH (08:40)
[2021-05-03] MEDS: INVEST MED Kar XT OR PLACEBO 50/20 MG PO SCH ×2 (10:00→22:00)
[2021-05-03 15:59] VITALS: BP 128/82
--- NOTE | 2021-05-03 18:37 | NUR ---
MS RN CLOSING NOTE PATIENT CURRENTLY SITTING IN BED, AWAKE. A/O X4. CLINICAL TRIAL PATIENT. STABLE ON ROOM AIR - NO SOB NOTED. NO DISTRESS/DISCOMFORT NOTED. NO IV ACCESS. ENCOURAGED PATIENT TO USE CALL LIGHT IF NEEDED. SAFETY MEASURES IN PLACE. 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
--- NOTE | 2021-05-03 19:57 | NUR ---
MS RN OPENING NOTES PATIENT CURRENTLY LAYING IN BED, WATCHING TV. A/O X4. CLINICAL TRIAL PATIENT. ON ROOM AIR AND TOLERATING WELL. NO SOB NOTED. NO S/SX OF RESPIRATORY DISTRESS NOTED. NO IV ACCESS. SAFETY MEASURES IN PLACE: BED IN LOWEST, LOCKED POSITION, BRAKES ON, SIDERAILS UPx2. TABLE AND CALL LIGHT WITHIN REACH. WILL CONTINUE TO MONITOR.
[2021-05-03 20:00] VITALS: BP 128/75
[2021-05-03] MEDS: ZOLPIDEM TARTRATE 10 MG TABLET PO PRN (21:56)
--- NOTE | 2021-05-03 22:04 | NUR ---
EDUCATED PATIENT ON POSSIBLE FALL RISK WITH COMBINATION OF ATIVAN AND AMBIEN. PT REFUSED MEDICATION. RETURNED TO [facility]. ADMINISTERED AMBIEN FOR SLEEP, REQUESTED BY PATIENT. WILL CONTINUE TO MONITOR.
--- NOTE | 2021-05-04 06:35 | NUR ---
MS RN CLOSING NOTES PATIENT CURRENTLY LAYING IN BED, SLEEPING, AWAKENS TO VERBAL STIMULI. A/O X4. CLINICAL TRIAL PATIENT. ON ROOM AIR AND TOLERATING WELL. NO SOB NOTED. NO S/SX OF RESPIRATORY DISTRESS NOTED. NO IV ACCESS. ALL NEEDS MET. PT KEPT CLEAN AND DRY. ADMINISTERED INVESTIGATIONAL MEDICATION PER MD ORDER. SAFETY MEASURES IN PLACE: BED IN LOWEST, LOCKED POSITION, BRAKES ON, SIDERAILS UPx2. TABLE AND CALL LIGHT WITHIN REACH. WILL ENDORSE TO ONCOMING SHIFT.
--- NOTE | 2021-05-04 07:47 | NUR ---
RN OPENING NOTE PT AWAKE IN BED RESTING. A/O X4 AND ROMANIAN SPEAKING. ON RA WITH NO SOB OR RESPIRATORY DISTRESS. NO CERTIFIED PHYSICAL THERAPIST ASSISTANT. NO EDEMA. SELF AMBULATORY WITH BATHROOM PRIVILEGES. SKIN INTACT. REGULAR DIET. NO IV DUE TO STATUS CLINICAL TRIAL. LABS AND ORDERS REVIEWED. SAFETY MEASURES IN PLACE. SIDE RAILS RAISED. BED LOWERED. CALL LIGHT WITHIN REACH. WILL CONTINUE TO MONITOR.
[2021-05-04 08:00] VITALS: BP 143/81
[2021-05-04] MEDS: AMLODIPINE 5 MG PO SCH (08:57)
[2021-05-04] MEDS: MAG HYDROX/AL HYDROX/SIMETH 30 ML UDC PO PRN ×2 (08:57→22:06)
[2021-05-04] MEDS: INVEST MED Kar XT OR PLACEBO 50/20 MG PO SCH ×2 (10:07→22:01)
[2021-05-04 16:00] VITALS: BP 139/81
--- NOTE | 2021-05-04 18:49 | NUR ---
RN CLOSING NOTE PT AWAKE IN BED RESTING. A/O X4 AND SUDANESE SPEAKING. ON RA WITH NO SOB OR RESPIRATORY DISTRESS. NO CORPORATE REAL ESTATE MANAGER. NO EDEMA. SELF AMBULATORY WITH BATHROOM PRIVILEGES. SKIN INTACT. REGULAR DIET. NO IV DUE TO STATUS CLINICAL TRIAL. LABS AND ORDERS REVIEWED. SAFETY MEASURES IN PLACE. SIDE RAILS RAISED. BED LOWERED. CALL LIGHT WITHIN REACH. WILL GIVE REPORT TO NIGHT NURSE FOR ANGELO.
--- NOTE | 2021-05-04 19:48 | NUR ---
MS RN OPENING NOTES RECEIVED PATIENT LAYING IN BED, WATCHING TV. A/O X4. CLINICAL TRIAL PATIENT. ON ROOM AIR AND TOLERATING WELL. NO SOB NOTED. NO S/SX OF RESPIRATORY DISTRESS NOTED. NO IV ACCESS. SAFETY MEASURES IN PLACE: BED IN LOWEST, LOCKED POSITION, BRAKES ON, SIDERAILS UPx2. TABLE AND CALL LIGHT WITHIN REACH. WILL CONTINUE TO MONITOR.
[2021-05-04 20:00] VITALS: BP_SYST 112; BP_SYST 116; BP_DIAS 69; BP_DIAS 72
--- NOTE | 2021-05-04 22:00 | NUR ---
MS RN NOTES/CLINICAL TRIAL IN ROOM A/O X4,WAITING FOR HIS MEDICATION,GIVEN WITH AMBIEN 10MG PO FOR SLEEP PATIENT REQUESTED.
[2021-05-04] MEDS: ZOLPIDEM TARTRATE 10 MG TABLET PO PRN (22:03)
--- NOTE | 2021-05-04 22:06 | NUR ---
MS RN NOTES C/O STOMACH UPSET,GIVEN MAALOX 30ML PER PATIENT REQUEST.
[2021-05-05] MEDS: MAG HYDROX/AL HYDROX/SIMETH 30 ML UDC PO PRN (05:48)
--- NOTE | 2021-05-05 07:27 | NUR ---
MS RN NOTES/CLINICAL TRIAL NO SIGNS OF AKITHISIA NOTED,HAD MAALOX TWICE FOR STOMACH UPSET,AMBULATORY,NO DISTRESS.
[2021-05-05 08:00] VITALS: BP 128/88
[2021-05-05 08:05] VITALS: BP 128/88
[2021-05-05] MEDS: AMLODIPINE 5 MG PO SCH (09:45)
[2021-05-05] MEDS: INVEST MED Kar XT OR PLACEBO 50/20 MG PO SCH ×2 (10:15→22:07)
--- NOTE | 2021-05-05 10:51 | NUR ---
RN OPENING NOTE PT AWAKE IN BED RESTING. A/O X4 AND AZERI SPEAKING. ON RA WITH NO SOB OR RESPIRATORY DISTRESS. NO MANAGER DIVERSITY. NO EDEMA. SELF AMBULATORY WITH BATHROOM PRIVILEGES. SKIN INTACT. REGULAR DIET. NO IV DUE TO STATUS CLINICAL TRIAL. LABS AND ORDERS REVIEWED. SAFETY MEASURES IN PLACE. SIDE RAILS RAISED. BED LOWERED. CALL LIGHT WITHIN REACH. WILL CONTINUE TO MONITOR.
[2021-05-05 16:20] VITALS: BP 143/84
--- NOTE | 2021-05-05 17:44 | NUR ---
RN CLOSING NOTE PT AWAKE IN BED RESTING. A/O X4 AND KENYAN SPEAKING. ON RA WITH NO SOB OR RESPIRATORY DISTRESS. NO CATTLE SHIPPER. NO EDEMA. SELF AMBULATORY WITH BATHROOM PRIVILEGES. SKIN INTACT. REGULAR DIET. NO IV DUE TO STATUS CLINICAL TRIAL. LABS AND ORDERS REVIEWED. SAFETY MEASURES IN PLACE. SIDE RAILS RAISED. BED LOWERED. CALL LIGHT WITHIN REACH. WILL GIVE REPORT TO NIGHT NURSE FOR ANGELO.
--- NOTE | 2021-05-05 19:00 | NUR ---
MS RN OPENING NOTE RECEIVED PT IN BED AT THIS TIME. A/OX4. PT ABLE TO MAKE NEEDS KNOWN. NO SOB, C/O PAIN OR ANY ACUTE DISTRESS NOTED. RESPIRATIONS EVEN AND UNLABORED, STABLE ON RA. NO IV ACCESS NOTED. PT DENIES SI/HI, VISUAL/AUDITORY HALLUCINATION. NO C/O TREMORS, EPS, OR AKATHASIA. SAFETY PRECAUTIONS IN PLACE AND MAINTAINED AT ALL TIMES. BED IN LOWEST LOCKED POSITION, SIDE RAILS UPX2, CALL LIGHT AND TABLE WITHIN REACH. WILL CONTINUE TO MONITOR.
[2021-05-05 20:00] VITALS: BP 120/72
[2021-05-05] MEDS: ZOLPIDEM TARTRATE 10 MG TABLET PO PRN ×3 (22:34→22:48)
--- NOTE | 2021-05-05 22:48 | NUR ---
PT C/O INSOMNIA, AMBIEN 10MG PO HS PRN PER PT REQUEST ADMINISTERED AT THIS TIME ORDERED. WILL CONTINUE TO MONITOR Addendum: 05/06/21 at 0705 by YENI CAMPO RN PT REFUSED THE AMBIEN DEMANDING HE GETS THE ONE WITH ROUND SHAPE. CHARGE NURSE SUKI MADE AWARE.
--- NOTE | 2021-05-05 23:34 | NUR ---
READMINISTERED THE AMBIEN AFTER CHARGE NURSE, SUKI SPOKE TO HIM. WILL CONTINUE TO MONITOR.
[2021-05-06] MEDS: ZOLPIDEM TARTRATE 10 MG TABLET PO PRN ×2 (00:07→22:40)
[2021-05-06] MEDS: MAG HYDROX/AL HYDROX/SIMETH 30 ML UDC PO PRN ×2 (02:11→08:25)
--- NOTE | 2021-05-06 02:11 | NUR ---
PER PT REQUEST MAALOX SUSP PO 30ML/I UNIT Q6H PRN ADMINISTERED AT THIS TIME ORDERED FOR INDIGESTION. WILL CONTINUE TO MONITOR
[2021-05-06 08:00] VITALS: BP 124/70
[2021-05-06] MEDS: AMLODIPINE 5 MG PO SCH (09:36)
--- NOTE | 2021-05-06 10:00 | NUR ---
MEDICATED WITH MAALOX FOR INDIGESTION,LEFT FLOOR IN AM FOR BREAK,THEN EATING BREAKFAST LATE.INFORMED PT. THAT INVESTIGATIONAL DRUG WOULD BE LATE.PT. INADVERTENTLY CONTACTED DR. RATLIFF TELLING HIM INV. MED LATE.
[2021-05-06] MEDS: INVEST MED Kar XT OR PLACEBO 50/20 MG PO SCH ×2 (11:11→21:53)
--- NOTE | 2021-05-06 11:15 | NUR ---
PT. GIVEN INV.MED AND RN REXPLAINED WHY MED LATE.
[2021-05-06 16:22] VITALS: BP 136/75
--- NOTE | 2021-05-06 18:30 | NUR ---
NO DISTRESS AT THIS TIME.
--- NOTE | 2021-05-06 21:39 | NUR ---
RN NOTES RECEIVED PT IN BED AT THIS TIME. A/OX4. PT ABLE TO MAKE NEEDS KNOWN. NO SOB, C/O PAIN OR ANY ACUTE DISTRESS NOTED. RESPIRATIONS EVEN AND UNLABORED, STABLE ON RA. NO IV ACCESS NOTED. PT DENIES SI/HI, VISUAL/AUDITORY HALLUCINATION. NO C/O TREMORS, EPS, OR AKATHASIA. SAFETY PRECAUTIONS IN PLACE AND MAINTAINED AT ALL TIMES. BED IN LOWEST LOCKED POSITION, SIDE RAILS UPX2, CALL LIGHT AND TABLE WITHIN REACH. WILL CONTINUE TO MONITOR.
[2021-05-06 22:00] VITALS: BP 117/99
--- NOTE | 2021-05-07 06:42 | NUR ---
RN NOTES RECEIVED PT IN BED AT THIS TIME. A/OX4. PT ABLE TO MAKE NEEDS KNOWN. NO SOB, C/O PAIN OR ANY ACUTE DISTRESS NOTED. RESPIRATIONS EVEN AND UNLABORED, STABLE ON RA. NO IV ACCESS NOTED. PT DENIES SI/HI, VISUAL/AUDITORY HALLUCINATION. NO C/O TREMORS, EPS, OR AKATHASIA. SAFETY PRECAUTIONS IN PLACE AND MAINTAINED AT ALL TIMES. BED IN LOWEST LOCKED POSITION, SIDE RAILS UPX2, CALL LIGHT AND TABLE WITHIN REACH. WILL ENDORSE TO DAY SHIFT NURSE.
[2021-05-07 08:00] VITALS: BP 131/76
[2021-05-07] MEDS: MAG HYDROX/AL HYDROX/SIMETH 30 ML UDC PO PRN (08:28)
[2021-05-07] MEDS: AMLODIPINE 5 MG PO SCH (08:31)
[2021-05-07] MEDS: INVEST MED Kar XT OR PLACEBO 50/20 MG PO SCH ×2 (10:00→21:58)
[2021-05-07 16:00] VITALS: BP 129/76
--- NOTE | 2021-05-07 18:00 | NUR ---
NO ACUTE DISTRESS,VS STABLE,NO BEHAVIOR ISSUES.OFF FLOOR SEVERAL TIMES THROUGHOUT THE SHIFT.
[2021-05-07 20:00] VITALS: BP 126/76
--- NOTE | 2021-05-07 20:10 | NUR ---
Patient A&Ox4. Denies s/s of schizophrenia no hallucinations at this time. Denies any side effects from investigational meds. Will continue to monitor.
[2021-05-07] MEDS: ZOLPIDEM TARTRATE 10 MG TABLET PO PRN (21:58)
--- NOTE | 2021-05-08 06:28 | NUR ---
Patient reports resting well throughout the night after PRN ambien administration. Denies any side effects or symptoms. No signs of distress.
--- NOTE | 2021-05-08 07:30 | NUR ---
MS RN OPENING NOTE RECEIVED PT IN SITTING ON A CHAIR, A/OX4. PT ABLE TO MAKE NEEDS KNOWN. NO SOB, C/O PAIN OR ANY ACUTE DISTRESS NOTED. RESPIRATIONS EVEN AND UNLABORED, STABLE ON RA. NO IV ACCESS NOTED. PT DENIES SI/HI, VISUAL/AUDITORY HALLUCINATION. NO C/O TREMORS, EPS, OR AKATHASIA. SAFETY PRECAUTIONS IN PLACE AND MAINTAINED AT ALL TIMES. BED IN LOWEST LOCKED POSITION, SIDE RAILS UPX2, CALL LIGHT AND TABLE WITHIN REACH. WILL CONTINUE TO MONITOR ACCORDINGLY.
[2021-05-08 08:00] VITALS: BP 131/69
[2021-05-08] MEDS: AMLODIPINE 5 MG PO SCH (08:17)
[2021-05-08] MEDS: INVEST MED Kar XT OR PLACEBO 50/20 MG PO SCH ×2 (10:05→22:01)
--- NOTE | 2021-05-08 18:42 | NUR ---
MS RN CLOSING NOTES PT IN SITTING ON A CHAIR, A/OX4. PT ABLE TO MAKE NEEDS KNOWN. NO SOB, C/O PAIN OR ANY ACUTE DISTRESS NOTED. RESPIRATIONS EVEN AND UNLABORED, STABLE ON RA. NO IV ACCESS NOTED. PT DENIES SI/HI, VISUAL/AUDITORY HALLUCINATION. NO C/O TREMORS, EPS, OR AKATHASIA. SAFETY PRECAUTIONS IN PLACE AND MAINTAINED AT ALL TIMES. BED IN LOWEST LOCKED POSITION, SIDE RAILS UPX2, CALL LIGHT AND TABLE WITHIN REACH. ALL NEEDS ATTENDED AND MET, ALL DUE MEDS GIVEN ORDERED. WILL ENDORSE TO ONCOMING SHIFT FOR ANGELO.
[2021-05-08 20:00] VITALS: BP 111/64
--- NOTE | 2021-05-08 20:00 | NUR ---
Patient is A&Ox4. No signs of distress. Reports no side effects from medication and no hallucinations at this time. Only c/o is that pt feels gassy. Maalox to be given as requested. Reminded pt to be on floor at 2200 as usual.
[2021-05-08] MEDS: MAG HYDROX/AL HYDROX/SIMETH 30 ML UDC PO PRN (20:05)
[2021-05-08] MEDS: ZOLPIDEM TARTRATE 10 MG TABLET PO PRN (22:05)
--- NOTE | 2021-05-09 06:31 | NUR ---
Patient has been A&Ox4. VSS. Denies side effects from medication. denies hallucinations overnight. Is awake early to smoke. No behavioral issues.
[2021-05-09 08:00] VITALS: BP 122/61
[2021-05-09] MEDS: AMLODIPINE 5 MG PO SCH (09:04)
[2021-05-09] MEDS: MAG HYDROX/AL HYDROX/SIMETH 30 ML UDC PO PRN ×2 (09:04→19:26)
--- NOTE | 2021-05-09 10:00 | NUR ---
m/s in home caregiver: notes investigation drug given to pt as ordered. denies auditory or visual hallucinations. instructed to call for assistance. will continue to monitor.
[2021-05-09] MEDS: INVEST MED Kar XT OR PLACEBO 50/20 MG PO SCH ×2 (10:02→21:57)
--- NOTE | 2021-05-09 17:45 | NUR ---
m/s upholstery sewer: notes pt resting in bed with no distress noted. needs attended. instructed to call for assistance. will continue to monitor.
--- NOTE | 2021-05-09 18:15 | NUR ---
m/s [employer] learning support teacher: md visit seen by dr. montejo at this time.
--- NOTE | 2021-05-09 19:59 | NUR ---
MS RN OPENING NOTES RECEIVED PT IN CHAIR, WATCHING TV. PT IS AOx4. CLINICAL TRIAL PATIENT. ABLE TO MAKE NEEDS KNOWN. ON ROOM AIR AND TOLERATING WELL. NO S/SX OF RESPIRATORY DISTRESS NOTED. NO SOB NOTED. NO IV ACCESS. SAFETY PRECAUTIONS IN PLACE: BED IN LOWEST, LOCKED POSITION, BRAKES ON, SIDERAILS UPx2. TABLE AND CALL LIGHT WITHIN REACH. WILL CONTINUE TO MONITOR.
[2021-05-09 20:00] VITALS: BP 118/62
[2021-05-09] MEDS: ZOLPIDEM TARTRATE 10 MG TABLET PO PRN (21:55)
--- NOTE | 2021-05-10 06:19 | NUR ---
MS RN CLOSING NOTES PT IN BED, WATCHING TV. PT IS AOx4. CLINICAL TRIAL PATIENT. ABLE TO MAKE NEEDS KNOWN. ON ROOM AIR AND TOLERATING WELL. NO S/SX OF RESPIRATORY DISTRESS NOTED. NO SOB NOTED. NO IV ACCESS. ADMINISTERED AMBIEN @2200. ALL NEEDS MET. PT KEPT CLEAN AND DRY. SAFETY PRECAUTIONS IN PLACE: BED IN LOWEST, LOCKED POSITION, BRAKES ON, SIDERAILS UPx2. TABLE AND CALL LIGHT WITHIN REACH. WILL ENDORSE TO ONCOMING SHIFT.
[2021-05-10] MEDS: AMLODIPINE 5 MG PO SCH (10:08)
[2021-05-10] MEDS: INVEST MED Kar XT OR PLACEBO 50/20 MG PO SCH ×2 (10:08→21:58)
--- NOTE | 2021-05-10 19:11 | NUR ---
MS/RN CLOSING NOTES PATIENT IS ALERT AND ORIENTED X4. PATIENT IS ON ROOM AIR. PATIENT IN NO APPARENT RESPIRATORY DISTRESS NOTED. NO COMPLAINED OF PAIN NOTED AT THIS TIME. NO IV ACCESS MD WAS AWARE. NO CHANGED OF CONDITION. WILL ENDORSED TO ARMAMENT INSTALLER FOR ANGELO.
[2021-05-10 20:00] VITALS: BP 117/75
--- NOTE | 2021-05-10 20:35 | NUR ---
RECEIVED PATIENT SETTING ON BED AWAKE ALERT AND ORIENTED X4. PATIENT IS ON ROOM AIR. PATIENT IN NO APPARENT RESPIRATORY DISTRESS NOTED. NO COMPLAINED OF PAIN NOTED AT THIS TIME. WILL CONTINUE TO MONITOR.
[2021-05-10] MEDS: ZOLPIDEM TARTRATE 10 MG TABLET PO PRN (21:58)
--- NOTE | 2021-05-11 08:02 | NUR ---
MS/RN OPENING NOTES RECEIVED PATIENT RESTING ON BED AWAKE,ALERT AND ORIENTED X4. PATIENT IS ON ROOM AIR. PATIENT IN NO APPARENT RESPIRATORY DISTRESS NOTED.NO S/S DISTRESS NOTED NO COMPLAINED OF PAIN NOTED AT THIS TIME. WILL CONTINUE TO MONITOR.
[2021-05-11] MEDS: AMLODIPINE 5 MG PO SCH (08:56)
[2021-05-11] MEDS: INVEST MED Kar XT OR PLACEBO 50/20 MG PO SCH ×2 (10:00→22:13)
[2021-05-11 17:01] VITALS: BP 130/83
--- NOTE | 2021-05-11 20:19 | NUR ---
MS RN NOTES: RECEIVED PATIENT LAYING ON BED, AWAKE, ALERT AND ORIENTED X3. APPROPRIATE AFFECT, CALM AND COOPERATIVE. DENIES SI/HI AT THIS TIME. DENIES PAIN AT THIS TIME. ADMITS TO V/A HALLUCINATIONS SOMETIMES BUT NOT TODAY. NO S/S OF DISTRESS, RESPIRATION EVEN AND UNLABORED WITH EQUAL RISE AND FALL OF THE CHEST ON ROOM AIR, SPO2 97%. OFFERED FLUID AND SNACKS TOLERATED. WILL CONTINUE TO MONITOR FOR SAFETY, MOOD AND BEHAVIOR.
[2021-05-11] MEDS: ZOLPIDEM TARTRATE 10 MG TABLET PO PRN (22:13)
--- NOTE | 2021-05-11 22:14 | NUR ---
GPS RN NOTES: PATIENT ASKED FOR SLEEP MEDICATION. AMBIEN 10MG GIVEN PO AT 2213. WILL CONTINUE TO MONITOR.
--- NOTE | 2021-05-12 07:18 | NUR ---
GPS RN CLOSING NOTES: PATIENT IS LAYING COMFORTABLY IN BED, AWAKE, A/O X4. PATIENT WENT OUT OF THE UNIT FOR SMOKE BREAK TWICE THIS SHIFT. PATIENT HAS NO S/S OF DISTRESS. RESPIRATION EVEN AND UNLABORED WITH EQUAL RISE AND FALL OF THE CHEST, ON ROOM AIR. ALL PATIENT CARE NEEDS HAVE BEEN MET ANTICIPATED. WILL CONTINUE TO MONITOR AND ENDORSE TO AM SHIFT FOR CONTINUITY OF CARE.
[2021-05-12 08:00] VITALS: BP 131/84
--- NOTE | 2021-05-12 08:09 | NUR ---
RN OPENING NOTES Patient seen comfortably lying in bed, no apparent distress noted, no SOB, respirations even and unlabored, denies any pain or discomfort at this time. Safety precautions in place, brakes locked, side rails up X 2, call light left within reach, will monitor closely for any changes.
[2021-05-12] MEDS: AMLODIPINE 5 MG PO SCH (08:50)
[2021-05-12] MEDS: INVEST MED Kar XT OR PLACEBO 50/20 MG PO SCH ×2 (10:03→21:22)
[2021-05-12 16:00] VITALS: BP 117/75
--- NOTE | 2021-05-12 18:55 | NUR ---
RN CLOSING NOTES Patient lying in bed, AO X 4, no SOB, breathing even and unlabored, denies any pain or discomfort, no apparent distress noted. Patient on monitoring for tremors, none noted during shift, no hallucinations, and no delusions during shift. All medications given per MD order, tolerating well, kept clean and dry, all needs attended, call light left within reach, safety precautions in place, brakes locked, side rails up X 2, will endorse to next shift for continuity of care.
--- NOTE | 2021-05-12 19:20 | NUR ---
MS RN OPENING NOTES RECEIVED PATIENT IN BED RESTING COMFORTABLY. ALERT AND ORIENTED X 4, NO S/SX OF ACUTE RESPIRATORY DISTRESS NOTED. PATIENT IS CALM, COOPERATIVE AND MED COMPLIANT. AMBULATORY WITH STEADY GAIT. NO IV ACCESS. ON ROOM AIR TOLERATING WELL. DENIES SI/HI/AVH AT THIS TIME. SAFETY PRECAUTIONS IN PLACE. BED ON LOWEST LOCKED POSITION, SIDE RAILS UP, KEPT CALL LIGHT WITHIN EASY REACH. NO S/SX OF EPS, AKATHISIA, ALL NEEDS ATTENDED AND MET. WILL CONTINUE TO MONITOR.
[2021-05-12 20:00] VITALS: BP 121/72
[2021-05-12] MEDS: ZOLPIDEM TARTRATE 10 MG TABLET PO PRN (21:31)
--- NOTE | 2021-05-12 21:31 | NUR ---
GPS-RN NOTES: INSOMNIA PATIENT C/O INABILITY TO SLEEP. PRN AMBIEN 10MG PO GIVEN ORDERED. WILL CONTINUE TO MONITOR. Addendum: 05/13/21 at 0058 by NOVEM Jaimee PRITCHARD RN MS VALENZUELA NOTES:
--- NOTE | 2021-05-13 06:26 | NUR ---
MS RN CLOSING NOTES PATIENT IN BED ASLEEP, AROUSES EASILY. IN NO ACUTE DISTRESS NOTED. SAFETY PRECAUTIONS IN PLACE. BED ON LOWEST LOCKED POSITION, SIDE RAILS UP, KEPT CALL LIGHT WITHIN EASY REACH. NO S/SX OF EPS, AKATHISIA, ALL NEEDS ATTENDED AND MET, DUE MEDS GIVEN ORDERED. WILL ENDORSE TO ONCOMING SHIFT FOR CONTINUITY OF CARE.
--- NOTE | 2021-05-13 07:30 | NUR ---
m/s clinical research spec: notes received pt in bed awake, a/ox4; ambulatory. no distress noted. instructed to call for assistance.
[2021-05-13 08:00] VITALS: BP 114/66
[2021-05-13] MEDS: AMLODIPINE 5 MG PO SCH (08:42)
[2021-05-13] MEDS: INVEST MED Kar XT OR PLACEBO 50/20 MG PO SCH ×2 (10:08→22:00)
[2021-05-13 16:00] VITALS: BP 123/78
--- NOTE | 2021-05-13 18:15 | NUR ---
m/s superintendent communications: md visit seen by dr. montejo at this time.
--- NOTE | 2021-05-13 19:45 | NUR ---
MS RN OPENING NOTES: RECEIVED PATIENT AWAKE IN ROOM , BED IN LOW POSITION, CALL LIGHTS WITHIN REACH, PATIENT ON CLINICAL TRIAL , AMBULATORY A/O X4 ON MONITORING FOR ANY ADVERSE EFFECT OF MEDICATION, NO CHANGES IN BEHAVIOR WAS OBSERVED, ALL NEEDS MET, WILL CONTINUE TO MONITOR.
[2021-05-13 20:00] VITALS: BP 130/57
[2021-05-13] MEDS ORDERED: ZOLPIDEM TARTRATE 10 MG TABLET ONE (22:10)
[2021-05-13] MEDS ORDERED: ZOLPIDEM TARTRATE 10 MG TABLET PO ONE (23:00)
[2021-05-14 04:10] VITALS: BP 130/57
--- NOTE | 2021-05-14 06:40 | NUR ---
MS RN CLOSING NOTES: PATIENT WAS IN ROOM AWAKE AND VERBALLY RESPONSIVE, A/O 4 AMBULATORY, NO COMPLAIN OF PAIN AND DISCOMFORT ON CLINICAL TRIAL, NO ADVERSE REACTION OR ANY CHANGES IN BEHAVIOR WAS OBSERVED, ALL NEEDS ARE MET, ON CONTINUOUS MONITORING AND OBSERVATION, ENDORSE TO INCOMING SHIFT.
--- NOTE | 2021-05-14 07:15 | NUR ---
RN NOTES PATIENT WAS SEEN OUT IN THE HALLWAY, A/O X4, ABLE TO MAKE NEEDS KNOWN. AMBULATORY W/ STEADY GAIT. BREATHING EVEN AND UNLABORED, NO ACUTE DISTRESS. SAFETY MEASURES IN PLACE. WILL CONTINUE TO MONITOR.
[2021-05-14 08:00] VITALS: BP 120/72
[2021-05-14] MEDS: AMLODIPINE 5 MG PO SCH ×2 (09:00→09:24)
--- NOTE | 2021-05-14 10:00 | NUR ---
RN NOTES PATIENT CURRENTLY NOT IN THE ROOM.
[2021-05-14] MEDS: INVEST MED Kar XT OR PLACEBO 50/20 MG PO SCH ×2 (11:04→22:05)
--- NOTE | 2021-05-14 11:05 | NUR ---
RN NOTES PATIENT RETURNED TO ROOM AND INVESTIGATIONAL MED WAS GIVEN.
[2021-05-14] MEDS ORDERED: LORAZEPAM 1 MG TABLET FOR AGITATION/ANXIETY PO PRN (13:00)
[2021-05-14 16:00] VITALS: BP 115/79
--- NOTE | 2021-05-14 19:05 | NUR ---
RN NOTES SEEN IN PATIENT'S ROOM, RESTING, NOT IN ACUTE DISTRESS. NO ADVERSE CHANGE NOTED. SAFETY MEASURES MAINTAINED. WILL ENDORSE TO GEOTHERMAL OPERATIONS MANAGER RN FOR ANGELO.
--- NOTE | 2021-05-14 19:10 | NUR ---
RN NOTE RECEIVED REPORT. PT RESTING IN BED, DENIES ANY PAIN OR DISCOMFORT. AMBULATORY AD SARATH. NO ACUTE DISTRESS. INSTRUCTED TO CALL FOR ANY ASSISTANCE NEEDED. SAFETY MEASURES IN PLACE. WILL CONT TO MONITOR.
[2021-05-14] MEDS: ZOLPIDEM TARTRATE 10 MG TABLET PO PRN (22:09)
--- NOTE | 2021-05-15 07:00 | NUR ---
RN CLOSING NOTE RESTING IN BED, EASILY AROUSABLE TO STIMULI. NO C/O PAIN. NO SOB. NO ACUTE EVENTS DURING THE NIGHT. INSTRUCTED TO USE CALL LIGHT FOR ANY ASSISTANCE AND PT VERBALIZED UNDERSTANDING. ENDORSED TO NEXT SHIFT NURSE.
--- NOTE | 2021-05-15 07:07 | NUR ---
MS RN OPENING NOTES RECEIVED PATIENT IN HIS ROOM STANDING BY BEDSIDE. A/O X4. ABLE TO MAKE NEEDS KNOWN, DENIES PAIN OR ANY DISCOMFORTS T THIS TIME. ON ROOM AIR, BREATHING EVEN AND UNLABORED. CALL LIGHT W/I EASY REACH OF PT. WILL CONTINUE TO MONITOR.
[2021-05-15 09:09] VITALS: BP 133/72
[2021-05-15] MEDS: AMLODIPINE 5 MG PO SCH (09:10)
[2021-05-15] MEDS: INVEST MED Kar XT OR PLACEBO 50/20 MG PO SCH ×2 (10:06→21:59)
[2021-05-15 18:05] VITALS: BP 129/82
--- NOTE | 2021-05-15 18:52 | NUR ---
MS RN CLOSING NOTE PATIENT IS OUTSIDE TAKING A WALK AT THIS TIME. A/O X4. ABLE TO MAKE NEEDS KNOWN. AMBULATORY WITH STEADY GAIT. ON ROOM AIR WITH NO S/SX OF RESPIRATORY DISTRESS NOTED. NO IV ACCESS AT THIS TIME. CONTINUES ON INVESTIGATIONAL MEDICATIONS, NO EPS, AKITHESIA OR TREMORS NOTED DURING THE DAY. CALL LIGHT WITHIN REACH. WILL ENDORSE PLAN OF CARE TO STAINED GLASS JOINER NURSE.
--- NOTE | 2021-05-15 19:31 | NUR ---
MS RN OPENING PATIENT NOT IN THE ROOM AT THIS TIME. PER SHAY, RN PATIENT WENT DOWN.
[2021-05-15 20:00] VITALS: BP 117/76
[2021-05-15 20:43] VITALS: BP 117/76
[2021-05-15] MEDS: ZOLPIDEM TARTRATE 10 MG TABLET PO PRN (22:00)
--- NOTE | 2021-05-15 22:00 | NUR ---
MS RN NOTE PATIENT REQUESTED JAVAD AT THIS TIME. GIVEN.
--- NOTE | 2021-05-16 06:37 | NUR ---
MS RN CLOSING NOTE PATIENT IN BED WITH EYES CLOSED, EASY TO AROUSE. PATIENT A/OX4. NO S/S OF APPARENT DISTRESS ON ROOM AIR. DENIES PAIN. DID NOT EXHIBIT ANY PSYCH INSTABILITY, EPS, NOR AKATHISIA. NO FLUIDS RUNNING AT THIS TIME -- NO IV ACCESS. ALL NEEDS ATTENDED. SAFETY KEPT IN PLACE THE WHOLE SHIFT. NO SIGNIFICANT CHANGE SINCE LAST SHIFT. WILL ENDORSE CARE TO MORNING SHIFT RN.
[2021-05-16 08:00] VITALS: BP 126/76
[2021-05-16] MEDS: AMLODIPINE 5 MG PO SCH (09:07)
[2021-05-16] MEDS: INVEST MED Kar XT OR PLACEBO 50/20 MG PO SCH ×2 (10:01→21:59)
[2021-05-16 16:00] VITALS: BP 124/79
--- NOTE | 2021-05-16 18:30 | NUR ---
RN CLOSING NOTES Patient in bed, AO X 4, able to make needs known, can follow simple commands, no apparent distress noted, no SOB, respirations even and unlabored, denies any pain or discomfort. Patient on monitoring for akathisia, tremors, none noted during shift, no delusions, no hallucinations during shift. All medications given per MD order, tolerating well. All needs attended, kept clean and dry, call light left within reach, safety precautions in place, brakes locked, side rails up X 2, will endorse to next shift for continuity of care.
[2021-05-16 20:00] VITALS: BP 116/69
[2021-05-16] MEDS: ZOLPIDEM TARTRATE 10 MG TABLET PO PRN (21:57)
--- NOTE | 2021-05-16 21:57 | NUR ---
MS RN NOTE PATIENT REQUESTED AMBIEN. GIVEN AT THIS TIME.
--- NOTE | 2021-05-17 07:16 | NUR ---
ENDORSED CARE TO MERLIN FOR CONTINUITY OF CARE.
[2021-05-17] MEDS: AMLODIPINE 5 MG PO SCH (09:00)
--- NOTE | 2021-05-17 09:59 | NUR ---
MS RN NOTE CALLED PATIENT AT 0955 TO ASK WHERABOUTS. PATIENT STATED HE WAS ON HIS WAY BACK.
[2021-05-17] MEDS: INVEST MED Kar XT OR PLACEBO 50/20 MG PO SCH ×2 (10:08→22:00)
--- NOTE | 2021-05-17 10:08 | NUR ---
MS RN NOTE ADMINISTERED INVESTIGATIONAL DRUG @ 0544. PATIENT REFUSED AMLODIPINE
[2021-05-17 16:00] VITALS: BP 123/76
--- NOTE | 2021-05-17 18:26 | NUR ---
MS RN CLOSING NOTE PATIENT CURRENTLY SITTING IN BED, AWAKE. A/O X4. CLINICAL TRIAL PATIENT. STABLE ON ROOM AIR - NO SOB NOTED. NO DISTRESS/DISCOMFORT NOTED. NO IV ACCESS. ENCOURAGED PATIENT TO USE CALL LIGHT IF NEEDED. SAFETY MEASURES IN PLACE. WILL ENDORSE TO CATH LAB MANAGER NURSE FOR ANGELO.
--- NOTE | 2021-05-17 19:55 | NUR ---
MS RN OPENING NOTES: RECEIVED PATIENT AWAKE IN BED, AMBULATORY, NO COMPLAIN OF PAIN AND DISCOMFORT AT THIS TIME, BED IN LOW POSITION, CALL LIGHTS WITHIN REACH, ON CLINICAL TRIAL, PATIENT APPEARS CALM NO CHANGES IN BEHAVIOR HAS BEEN OBSERVED, ALL NEEDS MET, KKEPT CLEAN AND DRY, WILL CONTINUE TO MONITOR.L
[2021-05-17 20:00] VITALS: BP 106/63
[2021-05-17] MEDS: ZOLPIDEM TARTRATE 10 MG TABLET PO PRN (21:57)
--- NOTE | 2021-05-18 06:24 | NUR ---
MS RN CLOSING NOTES: PATIENT WAS IN BED AWAKE, BED IN LOW POSITION, CALL LIGHTS WITHIN REACH, NO COMPLAIN OF PAIN AND DISCOMFORT AT THIS TIME, ON CLINICAL TRIAL, MED COMPLIANCE, AMBULATORY, A/OX4 ABLE TO MAKE NEEDS KNOWN, NO S/E FROM MEDICATION OR CHANGES IN BEHAVIOR WAS OBSERVED, PATIENT KEPT CLEAN AND DRY, ALL NEEDS MET, ENDORSE TO INCOMING SHIFT.
--- NOTE | 2021-05-18 07:35 | NUR ---
RN NOTE- PATIENT AWAKE IN BED, AMBULATORY, NO COMPLAINT OF PAIN AT THIS TIME, BED IN LOW POSITION, CALL LIGHTS WITHIN REACH, ON CLINICAL TRIAL, PATIENT APPEARS CALM NO CHANGES IN BEHAVIOR HAS BEEN OBSERVED, ALL NEEDS MET, KKEPT CLEAN AND DRY, WILL CONTINUE TO MONITOR.
[2021-05-18 08:00] VITALS: BP 129/88
[2021-05-18] MEDS: AMLODIPINE 5 MG PO SCH ×2 (09:00→09:23)
[2021-05-18] MEDS: INVEST MED Kar XT OR PLACEBO 50/20 MG PO SCH ×2 (09:22→22:00)
[2021-05-18 16:00] VITALS: BP 125/85
--- NOTE | 2021-05-18 18:45 | NUR ---
RN CLOSING NOTE- PATIENT IN ROOM AWAKE, BED IN LOW POSITION, CALL LIGHT WITHIN REACH, NO PAIN COMPLAINT AT THIS TIME, ON CLINICAL TRIAL, MED COMPLIANCE, AMBULATORY, A/OX4 ABLE TO MAKE NEEDS KNOWN, NO S/E FROM MEDICATION OR CHANGES IN BEHAVIOR WAS OBSERVED, PATIENT KEPT CLEAN AND DRY, ALL NEEDS MET, ENDORSE TO INCOMING SHIFT.
--- NOTE | 2021-05-18 19:23 | NUR ---
MS RN OPENING NOTES: PATIENT WAS NOT IN THE ROOM LEFT AT 1840 ON SIGN SHEET, PER CHARGE NURSE ON AND OFF THE FLOOR, ON CLINICAL TRIAL, A/O X4 AMBULATORY ABLE TO MAKE NEEDS KNOWN, OLGA FO FREQUENT ROUNDS, AND CONTINUE TO MONITOR.
[2021-05-18 20:00] VITALS: BP 118/67
[2021-05-18] MEDS: ZOLPIDEM TARTRATE 10 MG TABLET PO PRN (21:59)
--- NOTE | 2021-05-19 06:20 | NUR ---
MS RN CLOSING NOTES: PATIENT SLEEP IN BED COMFORTABLY, BED IN LOW POSITION, CALL LIGHTS WITHIN REACH, NO COMPLAIN OF PAIN AND DISCOMFORT AT THIS TIME, PATIENT IS A/OX 4 AMBULATORY, ON CLINICAL TRIAL MEDS COMPLIANCE, NO CHANGES IN BEHAVIOR OR ANY NOTICEABLE S/E OF MEDICINE HAS BEEN OBSERVED, PATIENT KEPT CLEAN AND DRY , ALL NEEDS MET, ENDORSE TO INCOMING SHIFT.
--- NOTE | 2021-05-19 07:10 | NUR ---
MS RN OPENING NOTE RECEIVED PATIENT LYING IN BED, AWAKE. A/O X4. ON ROOM AIR WITH NO SIGNS AND SYMPTOMS OF RESPIRATORY DISTRESS. NO DISTRESS, OR COMPLAINT OF ANY PAIN/ DISCOMFORT AT THIS TIME. NO IV ACCESS. SAFETY MEASURES IN PLACE WITH BED AT LOWEST AND LOCKED POSITION, CALL LIGHT AND BEDSIDE TABLE WITHIN REACH AT ALL TIMES. WILL CONTINUE TO MONITOR PATIENT.
[2021-05-19 08:00] VITALS: BP 116/64
[2021-05-19] MEDS: AMLODIPINE 5 MG PO SCH ×2 (09:00→09:07)
[2021-05-19] MEDS: INVEST MED Kar XT OR PLACEBO 50/20 MG PO SCH ×2 (09:59→21:49)
[2021-05-19 16:00] VITALS: BP 118/72
--- NOTE | 2021-05-19 19:19 | NUR ---
MS RN CLOSING NOTE PATIENT LYING IN BED, AWAKE. A/O X4. ON ROOM AIR WITH NO SIGNS AND SYMPTOMS OF RESPIRATORY DISTRESS. NO DISTRESS, OR COMPLAINT OF ANY PAIN/ DISCOMFORT AT THIS TIME. NO IV ACCESS. NO UNTOWARD BEHAVIOR NOTED. SAFETY MEASURES IN PLACE WITH BED AT LOWEST AND LOCKED POSITION, CALL LIGHT AND BEDSIDE TABLE WITHIN REACH AT ALL TIMES. WILL CENDORSE TO NEXT SHIFT FOR CONTINUITY OF CARE.
[2021-05-19 20:00] VITALS: BP 118/65
[2021-05-19] MEDS: ZOLPIDEM TARTRATE 10 MG TABLET PO PRN (21:49)
--- NOTE | 2021-05-20 07:56 | NUR ---
RN NOTES Received patient in bed, awake and alert, verbally responsive, no signs of acute distress noted. No c/o pain or discomfort. Safety precautions provided. Will continue to monitor.
[2021-05-20] MEDS: AMLODIPINE 5 MG PO SCH (09:00)
[2021-05-20] MEDS: INVEST MED Kar XT OR PLACEBO 50/20 MG PO SCH ×2 (10:09→21:44)
[2021-05-20 16:00] VITALS: BP 117/60
--- NOTE | 2021-05-20 18:41 | NUR ---
RN NOTES SEEN PATIENT AMBULATING IN THE HALLWAY. NO ACUTE DISTRESS. CONTINUES ON CLINICAL TRIAL. NO ADVERSE CHANGE NOTED. SAFETY MEASURES MAINTAINED. INVESTIGATIONAL MEDICINE ADMINISTERED. WILL ENDORSE TO FURNACE BRAZER RN FOR ANGELO.
[2021-05-20 20:00] VITALS: BP 120/75
[2021-05-20] MEDS: ZOLPIDEM TARTRATE 10 MG TABLET PO PRN (21:44)
--- NOTE | 2021-05-21 07:34 | NUR ---
RN NOTES: Seen patient in bed, awake and alert, verbally responsive, no signs of acute distress noted. No c/o pain or discomfort. Safety precautions provided. Will continue to monitor.
[2021-05-21 08:00] VITALS: BP 110/70
[2021-05-21] MEDS: AMLODIPINE 5 MG PO SCH (08:44)
--- NOTE | 2021-05-21 08:45 | NUR ---
RN NOTES PATIENT'S BP-110/70, HR-61.
--- NOTE | 2021-05-21 10:00 | NUR ---
RN NOTES PATIENT RETURNED TO ROOM ACCOMPANIED BY STAFF FROM DR. RATLIFF'S OFFICE. BLOOD DRAW 30MINS POST ADMINISTRATION OF INVESTIGATIONAL DRUG.
[2021-05-21] MEDS: INVEST MED Kar XT OR PLACEBO 50/20 MG PO SCH ×2 (10:02→21:58)
--- NOTE | 2021-05-21 11:00 | NUR ---
RN NOTES PHLEB TECH AT BEDSIDE FOR BLOOD DRAW; STAFF FROM DR. RATLIFF'S OFFICE MADE AWARE.
[2021-05-21 16:00] VITALS: BP 124/74
--- NOTE | 2021-05-21 18:44 | NUR ---
RN NOTES PATIENT RESTING IN ROOM, AWAKE AND VERBALLY RESPONSIVE. NOT IN ACUTE DISTRESS. CONTINUES ON CLINICAL TRIAL W/ NO ADVERSE CHANGE NOTED. SAFETY MEASURES MAINTAINED. WILL ENDORSE TO RN ANGIOGRAPHY RN FOR ANGELO.
[2021-05-21 20:00] VITALS: BP 129/71
[2021-05-21] MEDS: ZOLPIDEM TARTRATE 10 MG TABLET PO PRN (21:58)
--- NOTE | 2021-05-22 07:34 | NUR ---
RN OPENING NOTE- PATIENT AWAKE IN BED, AMBULATORY, NO COMPLAINT OF PAIN AT THIS TIME, BED IN LOW POSITION, CALL LIGHTS WITHIN REACH, ON CLINICAL TRIAL, PATIENT APPEARS CALM NO CHANGES IN BEHAVIOR HAS BEEN OBSERVED, WILL CONTINUE TO MONITOR.
[2021-05-22 08:00] VITALS: BP 110/68
[2021-05-22] MEDS: AMLODIPINE 5 MG PO SCH (08:50)
--- NOTE | 2021-05-22 08:50 | NUR ---
RN NOTE- BP- 110/52, HR 58. HELD AMLODIPINE 5 MG
[2021-05-22] MEDS: INVEST MED Kar XT OR PLACEBO 50/20 MG PO SCH ×2 (09:41→22:01)
[2021-05-22 16:00] VITALS: BP 127/71
--- NOTE | 2021-05-22 18:32 | NUR ---
RN CLOSING NOTE- PATIENT LYING IN BED, AWAKE. A/O X4. ON ROOM AIR WITH NO SIGNS AND SYMPTOMS OF RESPIRATORY DISTRESS. NO DISTRESS, OR COMPLAINT OF ANY PAIN/ DISCOMFORT AT THIS TIME. NO IV ACCESS. NO UNTOWARD BEHAVIOR NOTED. SAFETY MEASURES IN PLACE WITH BED AT LOWEST AND LOCKED POSITION, CALL LIGHT AND BEDSIDE TABLE WITHIN REACH AT ALL TIMES. WILL ENDORSE TO NEXT SHIFT FOR CONTINUITY OF CARE.
--- NOTE | 2021-05-22 19:45 | NUR ---
MS/RN OPENING NOTE RECEIVED PATIENT RESTING IN BED. AWAKE, ALERT AND ORIENTED X 4. ABLE TO MAKE NEEDS KNOWN. DENIES PAIN AT THIS TIME. CONTINUES ON ROOM AIR WITH NO S/SX OF RESPIRATORY DISTRESS NOTED. CONTINUES ON CLINICAL TRIAL AND INVESTIGATIONAL MEDICATION. NO IV ACCESS AT THIS TIME. PATIENT IS AMBULATORY WITH STEADY GAIT. CALL LIGHT WITHIN REACH. ASPIRATION, FALL AND SAFETY PRECAUTIONS MAINTAINED. WILL CONTINUE TO MONITOR.
[2021-05-22 20:00] VITALS: BP 127/70
[2021-05-22] MEDS: ZOLPIDEM TARTRATE 10 MG TABLET PO PRN (22:02)
--- NOTE | 2021-05-23 06:45 | NUR ---
MS/RN CLOSING NOTE PATIENT CURRENTLY SLEEPING IN BED. ALERT AND ORIENTED X 4. ABLE TO MAKE NEEDS KNOWN. DENIES PAIN AT THIS TIME. CONTINUES ON ROOM AIR WITH NO S/SX OF RESPIRATORY DISTRESS NOTED. CONTINUES ON CLINICAL TRIAL AND INVESTIGATIONAL MEDICATION. NO IV ACCESS AT THIS TIME. PATIENT IS AMBULATORY WITH STEADY GAIT. CALL LIGHT WITHIN REACH. ASPIRATION, FALL AND SAFETY PRECAUTIONS MAINTAINED. WILL ENDORSE PLAN OF CARE TO ONCOMING SHIFT.
--- NOTE | 2021-05-23 07:30 | NUR ---
MS RN OPENING NOTES RECEIVED PATIENT LYING IN BED, AWAKE. A/O X4. ON ROOM AIR WITH NO SIGNS AND SYMPTOMS OF RESPIRATORY DISTRESS. NO DISTRESS, OR COMPLAINTS OF ANY PAIN/ DISCOMFORT AT THIS TIME. NO IV ACCESS. SAFETY MEASURES IN PLACE WITH BED AT LOWEST AND LOCKED POSITION, CALL LIGHT AND BEDSIDE TABLE WITHIN REACH AT ALL TIMES. WILL CONTINUE TO MONITOR PATIENT ACCORDINGLY.
[2021-05-23 08:00] VITALS: BP 138/68
[2021-05-23] MEDS: AMLODIPINE 5 MG PO SCH (08:03)
[2021-05-23] MEDS: INVEST MED Kar XT OR PLACEBO 50/20 MG PO SCH ×2 (10:07→21:57)
[2021-05-23 16:00] VITALS: BP 128/70
--- NOTE | 2021-05-23 18:21 | NUR ---
MS RN CLOSING NOTES PATIENT IN BED. ALERT AND ORIENTED X 4. ABLE TO MAKE NEEDS KNOWN. DENIES PAIN AT THIS TIME. CONTINUES ON ROOM AIR WITH NO S/SX OF RESPIRATORY DISTRESS NOTED. CONTINUES ON CLINICAL TRIAL AND INVESTIGATIONAL MEDICATION. NO IV ACCESS AT THIS TIME. PATIENT IS AMBULATORY WITH STEADY GAIT. CALL LIGHT WITHIN REACH. ASPIRATION, FALL AND SAFETY PRECAUTIONS MAINTAINED. WILL ENDORSED TO ONCOMING SHIFT FOR ANGELO.
--- NOTE | 2021-05-23 19:41 | NUR ---
RN OPENING NOTES: RECEIVED PATIENT IN ROOM, AWAKE IN BED, PATIENT IS A/OX4 ABLE GABRIELA MAKE NEEDS KNOWN,AMBULATORY, ON CLINICAL TRIAL, NO CHANGES IN BEHAVIOR HAS BEEN OBSERVED, PATIENT KEPT CLEAN AND COMFORTABLE, ALL NEEDS MET, WILL CONTINUE TO MONITOR.
[2021-05-23 20:00] VITALS: BP 113/82
[2021-05-23] MEDS: ZOLPIDEM TARTRATE 10 MG TABLET PO PRN (21:58)
--- NOTE | 2021-05-24 06:26 | NUR ---
RN CLOSING NOTES: PATIENT SLEEP IN BED COMFORTABLY, AROUSABLE TO VERBAL STIMULI, BED IN LOW POSITION, CALL LIGHTS WITHIN REACH, NO COMPLAIN OF PAIN AND DISCOMFORT AT THIS TIME, PATIENT IS A/OX4 AMBULATORY AND ABLE TO MAKE NEEDS KNOWN, PATIENT ON CLINICAL TRIAL, NO CHANGES IN BEHAVIOR HAS BEEN OBSERVED, ALL NEEDS ATTENDED, ENDORSE TO INCOMING SHIFT.
--- NOTE | 2021-05-24 07:32 | NUR ---
MS RN OPENING NOTE RECEIVED PT AWAKE IN BED. A/O X4. PT IS STABLE ON ROOM AIR WITH NO SOB OR S/S OF RESPIRATORY DISTRESS NOTED. PT HAS NO C/O PAIN OR DISCOMFORT AT THIS TIME. NO IV ACCESS DUE TO CLINICAL TRIAL STATUS. SAFETY MEASURES MAINTAINED. BED IN LOWEST LOCKED POSITION, HOB ELEVATED, SIDE RAILS UP X2. CALL LIGHT AND TABLE WITHIN REACH. WILL CONTINUE TO MONITOR.
[2021-05-24 08:00] VITALS: BP 120/73
[2021-05-24] MEDS: AMLODIPINE 5 MG PO SCH (08:52)
[2021-05-24] MEDS: INVEST MED Kar XT OR PLACEBO 50/20 MG PO SCH ×2 (09:59→22:01)
[2021-05-24 16:00] VITALS: BP 118/75
--- NOTE | 2021-05-24 18:30 | NUR ---
MS RN CLOSING NOTE PT IS AWAKE IN BED. A/O X4. PT IS STABLE ON ROOM AIR WITH NO SOB OR S/S OF RESPIRATORY DISTRESS NOTED. PT HAS NO C/O PAIN OR DISCOMFORT AT THIS TIME. NO IV ACCESS DUE TO CLINICAL TRIAL STATUS. ALL NEEDS HAVE BEEN MET. NO BEHAVIORAL ISSUES OBSERVED DURING SHIFT. SAFETY MEASURES MAINTAINED AT ALL TIMES. BED IN LOWEST LOCKED POSITION, HOB ELEVATED, SIDE RAILS UP X2. CALL LIGHT AND TABLE WITHIN REACH. WILL ENDORSE TO ONCOMING NURSE FOR ANGELO.
--- NOTE | 2021-05-24 19:50 | NUR ---
RN OPENING NOTES Patient is A&Ox4. denies side effects from investigational medication. denies hallucinations, no obvious delusions at this time. No signs of distress. Reminded patient of 10pm medication admin time and to be on unit. Will continue to monitor.
[2021-05-24 20:00] VITALS: BP 125/70
--- NOTE | 2021-05-25 06:02 | NUR ---
RN CLOSING NOTES Patient has been A&Ox4 throughout night no overnight events or behaviors. Patient reports he slept "okay." Up early at 0500. Reports no side effects from investigational medication.
[2021-05-25 08:00] VITALS: BP 148/70
[2021-05-25] MEDS: AMLODIPINE 5 MG PO SCH ×2 (08:59→09:00)
[2021-05-25] MEDS: INVEST MED Kar XT OR PLACEBO 50/20 MG PO SCH ×2 (10:15→22:04)
[2021-05-25 16:00] VITALS: BP 113/64
--- NOTE | 2021-05-25 18:51 | NUR ---
MS/RN CLOSING NOTES PATIENT IS ALERT AND ORIENTED X4. PATIENT IS ON ROOM AIR. PATIENT IN NO APPARENT RESPIRATORY DISTRESS NOTED. NO COMPLAINED OF PAIN NOTED AT THIS TIME. NO IV ACCESS MD WAS AWARE. NO CHANGED OF CONDITION. WILL ENDORSED TO CARTOGRAPHY TECHNICIAN FOR ANGELO.
--- NOTE | 2021-05-25 19:00 | NUR ---
RECEIVED PT AWAKE IN BED AT THIS TIME. A/OX4. PT ABLE TO MAKE NEEDS KNOWN. NO SOB , NO C/O PAIN AT THIS TIME. RESPIRATIONS EVEN AND UNLABORED, STABLE ON RA. NO IV ACCESS NOTED. PT DENIES SI/HI.PT DENIES VISUAL/ AUDITORY HALLUCINATION. NO COMPLAIN OF TREMORS, EPS, OR AKATHASIA. SAFETY PRECAUTIONS IN PLACE AND MAINTAINED AT ALL TIMES. BED IN LOWEST LOCKED POSITION, HOB ELEVATED, RAJAT RAILS UP X2, CALL LIGHT AND TABLE WITHIN REACH. WILL CONTINUE TO MONITOR
[2021-05-25 20:29] VITALS: BP 135/71
--- NOTE | 2021-05-26 06:00 | NUR ---
CLOSING NOTE PT REMAINED STABLE ALL SHIFT. WILL ENDORSE TO AM NURSE.
[2021-05-26 08:00] VITALS: BP 109/65
[2021-05-26 08:34] VITALS: BP 109/65
[2021-05-26] MEDS: AMLODIPINE 5 MG PO SCH (08:41)
--- NOTE | 2021-05-26 08:41 | NUR ---
RN NOTES PATIENT REFUSED BP MEDICATION, RISK AND BENEFITS EXPLAINED YET STILL REFUSED.
[2021-05-26] MEDS: INVEST MED Kar XT OR PLACEBO 50/20 MG PO SCH ×2 (10:00→21:51)
[2021-05-26] MEDS ORDERED: LORAZEPAM 1 MG TABLET FOR AGITATION/ANXIETY PO PRN (13:00)
[2021-05-26] MEDS ORDERED: ZOLPIDEM TARTRATE 10 MG TABLET PO PRN (13:00)
[2021-05-26 16:00] VITALS: BP 110/66
[2021-05-26 16:15] VITALS: BP 110/66
--- NOTE | 2021-05-26 19:05 | NUR ---
RN OPENING NOTE PT IN ROOM, A/OX4, DENIES ANY PAIN/DISCOMFORT. DENIES SOB. AMBULATORY AD SARATH. PT IN NO ACUTE DISTRESS. INSTRUCTED TO CALL FOR ANY ASSISTANCE NEEDED. PT VERBALIZED UNDERSTANDING. WILL CONT TO MONITOR.
[2021-05-26 20:00] VITALS: BP 118/71
--- NOTE | 2021-05-27 06:45 | NUR ---
RN CLOSING NOTE PT RESTING IN BED, EASILY AROUSABLE, NO C/O PAIN, NO SOB. PT SLEPT WELL DURING THE NIGHT. NO ACUTE DISTRESS NOTED. NO PSYCH INSTABILITY NOTED. SAFETY MEASURES MAINTAINED.
[2021-05-27 08:00] VITALS: BP 115/73
[2021-05-27] MEDS: AMLODIPINE 5 MG PO SCH (09:00)
[2021-05-27] MEDS: INVEST MED Kar XT OR PLACEBO 50/20 MG PO SCH ×2 (09:57→22:01)
[2021-05-27 16:00] VITALS: BP 119/71
--- NOTE | 2021-05-27 18:00 | NUR ---
no acute distress,took several breaks and left floor.a little easily agitated.vs stable.
--- NOTE | 2021-05-27 19:51 | NUR ---
MS RN NOTE RECEIVED PATIENT IN BED. A/OX4, AMBULATORY AND INDEPENDENT. NO S/S OF APPARENT DISTRESS. DENIES PAIN. SAFETY IN PLACE. WILL CONTINUE TO MONITOR.
[2021-05-27 20:00] VITALS: BP 119/71
--- NOTE | 2021-05-28 06:53 | NUR ---
MS RN NOTE PATIENT DID NOT EXHIBIT AKATHISIA, EPS, NOR ANY PSYCH INSTABILITY. A/OX4. NO S/S OF DISTRESS. DENIES PAIN. INVESTIGATIONAL DRUG GIVEN ON TME. WILL ENDORSE CARE TO MORNING SHIFT RN.
--- NOTE | 2021-05-28 07:30 | NUR ---
MS RN OPENING NOTES RECEIVED PATIENT SITTING ON CHAIR, AWAKE AND A/O X4. ON ROOM AIR TOLERATING WELL. NO SOB NOTED. NOT IN DISTRESS. WITH NO COMPLAINTS OF PAIN AT THIS TIME. NO IV LINES. ON CLINICAL TRIAL. SAFETY MEASURES IN PLACE. BED ON LOWEST AND LOCKED POSITION, SIDE RAILS UP X2. CALL LIGHT WITHIN REACH. WILL CONTINUE TO MONITOR.
[2021-05-28 08:00] VITALS: BP 136/71
[2021-05-28] MEDS: AMLODIPINE 5 MG PO SCH (09:00)
[2021-05-28] MEDS: INVEST MED Kar XT OR PLACEBO 50/20 MG PO SCH ×2 (10:00→21:17)
[2021-05-28 16:00] VITALS: BP 131/80
--- NOTE | 2021-05-28 19:06 | NUR ---
MS RN CLOSING NOTES PATIENT ON BED, AWAKE AND A/O X4. ON ROOM AIR TOLERATING WELL. NO SOB NOTED. NOT IN DISTRESS. WITH NO COMPLAINTS OF PAIN AT THIS TIME. NO IV LINES. ON CLINICAL TRIAL. SAFETY MEASURES IN PLACE. BED ON LOWEST AND LOCKED POSITION, SIDE RAILS UP X2. CALL LIGHT WITHIN REACH. WILL ENDORSE TO NEXT SHIFT FOR ANGELO.
[2021-05-28 20:00] VITALS: BP 122/69
--- NOTE | 2021-05-29 06:51 | NUR ---
MS RN NOTES NO BEHAVIORAL DISORDER NOTED.FOR DISCHARGE TODAY.
--- NOTE | 2021-05-29 07:33 | NUR ---
MS/RN OPENING NOTES RECEIVED REPORT PATIENT IS OUT IN THE ROOM.
[2021-05-29 08:00] VITALS: BP 131/80
--- NOTE | 2021-05-29 08:10 | NUR ---
RN NOTES PATIENT CAME BACK IN THE ROOM PATIENT IS ALERT AND ORIENTED X4. PATIENT IS ON ROOM AIR. PATIENT IN NO APPARENT RESPIRATORY DISTRESS NOTED. NO COMPLAINED OF PAIN NOTED AT THIS TIME. WILL CONTINUE TO MONITOR.
[2021-05-29] MEDS: AMLODIPINE 5 MG PO SCH (09:00)
--- NOTE | 2021-05-29 12:57 | NUR ---
RN NOTES PATIENT IS ALERT AND ORIENTED X4. PATIENT IN ROOM AIR. PATIENT IN NO APPARENT RESPIRATORY DISTRESS NOTED. NO COMPLAINED OF PAIN NOTED AT THIS TIME. DISCHARGE INSTRUCTIONS WAS GIVEN AND PATIENT VERBALIZED UNDERSTANDING. PATIENT LEFT THE HOSPITAL IN MEDICALLY STABLE CONDITION. AMBULATORY AND SELF CARE.
== END 2021-05-29 11:06 | disposition home or self-care (01) | DRG 951 ==
LOC: GPS 15:06 → MED 04-24 13:24
PROVIDERS: ADMIT Psychiatry & Neurology Psychiatry; ATTEND Psychiatry & Neurology Psychiatry
DX: Z00.6 Encounter for examination for normal comparison and control in clinical research program (principal); F20.0 Paranoid schizophrenia; F29 Unspecified psychosis not due to a substance or known physiological condition; F41.9 Anxiety disorder, unspecified; Z79.899 Other long term (current) drug therapy; G47.00 Insomnia, unspecified; Z82.0 Family history of epilepsy and other diseases of the nervous system
CPT/HCPCS: G0378; J3490

== ENCOUNTER 2023-03-17 14:07 | Inpatient (IN) | payer OTHER ==
[~2023-03-17] VITALS: Ht 167.6 cm; Wt 83.5 kg
[~2023-03-17 14:07] MED LIST: ZOLPIDEM TARTRATE 10 MG TABLET PO PRN
[2023-03-17] MEDS ORDERED: LORAZEPAM 1 MG TABLET FOR AGITATION PO PRN (14:30)
[2023-03-17] MEDS ORDERED: MAGNESIUM HYDROXIDE 30 ML UDC PO PRN (14:30)
[2023-03-17] MEDS ORDERED: ZOLPIDEM TARTRATE 10 MG TABLET PO PRN (14:30)
[2023-03-17] MEDS ORDERED: IBUPROFEN 200 MG TABLET PO PRN (14:30)
[2023-03-17] MEDS ORDERED: MAG HYDROX/AL HYDROX/SIMETH 30 ML UDC PO PRN (14:30)
[2023-03-17] MEDS ORDERED: ACETAMINOPHEN ES 500 MG TABLET PO PRN (14:30)
[2023-03-17 16:12] VITALS: BP 135/85; TEMP 98.6; O2SAT 96
[2023-03-17 20:00] VITALS: BP 147/87; TEMP 98.3; O2SAT 98
[2023-03-17] MEDS ORDERED: RISPERDAL 3 MG PO SCH (22:00)
[2023-03-18 08:00] VITALS: BP 121/75; TEMP 98; O2SAT 94
[2023-03-18] MEDS ORDERED: AMLODIPINE BESYLATE 5 MG TABLET PO SCH (09:00)
[2023-03-18 16:00] VITALS: BP 108/48; TEMP 98.2; O2SAT 96
[2023-03-18 21:09] VITALS: BP 135/77; TEMP 98.8; O2SAT 95
[2023-03-18] MEDS: risperiDONE 1 MG TABLET PO SCH (21:15)
[2023-03-18] MEDS: ZOLPIDEM TARTRATE 10 MG TABLET PO PRN (21:15)
[2023-03-19 07:00] VITALS: BP 144/94; TEMP 98.8; O2SAT 97
[2023-03-19] MEDS: AMLODIPINE 5 MG PO SCH (08:08)
[2023-03-19 19:00] VITALS: BP 138/91; TEMP 98.9; O2SAT 98
[2023-03-19 20:00] VITALS: BP 138/91; TEMP 98.9; O2SAT 98
[2023-03-19] MEDS: risperiDONE 1 MG TABLET PO SCH (21:12)
[2023-03-19] MEDS: ZOLPIDEM TARTRATE 10 MG TABLET PO PRN (21:50)
[2023-03-20 08:00] VITALS: BP 132/81; TEMP 98.6; O2SAT 100
[2023-03-20] MEDS: AMLODIPINE 5 MG PO SCH (08:38)
[2023-03-20 16:00] VITALS: BP 148/95; TEMP 98.4; O2SAT 95
[2023-03-20 20:00] VITALS: BP 121/63; TEMP 99; O2SAT 97
[2023-03-20] MEDS: ZOLPIDEM TARTRATE 10 MG TABLET PO PRN ×2 (21:23→22:27)
[2023-03-21 07:00] VITALS: BP 134/81; TEMP 97.6; O2SAT 99
[2023-03-21] MEDS: AMLODIPINE 5 MG PO SCH ×2 (08:29→09:11)
[2023-03-21 16:00] VITALS: BP 138/88; TEMP 98.5; O2SAT 97
[2023-03-21 20:00] VITALS: BP 139/85; TEMP 98.2; O2SAT 100
[2023-03-21] MEDS: ZOLPIDEM TARTRATE 10 MG TABLET PO PRN (21:22)
[2023-03-22 04:00] VITALS: BP 116/78; TEMP 97.9; O2SAT 97
[2023-03-22 08:00] VITALS: BP 149/92; TEMP 98.2; O2SAT 95
[2023-03-22 11:38] VITALS: BP 128/86; TEMP 98.4; O2SAT 96
[2023-03-22] MEDS: AMLODIPINE 5 MG PO SCH (11:39)
[2023-03-22 18:50] VITALS: BP 116/78; TEMP 97.9; O2SAT 97
[2023-03-22 20:00] VITALS: BP 133/75; TEMP 98.1; O2SAT 97
[2023-03-22] MEDS: ZOLPIDEM TARTRATE 10 MG TABLET PO PRN (21:20)
[2023-03-23 08:00] VITALS: BP 121/77; TEMP 97.8; O2SAT 98
[2023-03-23] MEDS: AMLODIPINE 5 MG PO SCH (09:28)
[2023-03-23 20:45] VITALS: BP 126/83; TEMP 97.9; O2SAT 98
[2023-03-23] MEDS: ZOLPIDEM TARTRATE 10 MG TABLET PO PRN (21:04)
[2023-03-24 08:52] VITALS: BP 133/89; TEMP 98.5; O2SAT 96
[2023-03-24] MEDS: AMLODIPINE 5 MG PO SCH (12:08)
[2023-03-24] MEDS ORDERED: LORAZEPAM 1 MG TABLET FOR AGITATION PO PRN (13:00)
[2023-03-24] MEDS ORDERED: ZOLPIDEM TARTRATE 10 MG TABLET PO PRN (13:00)
[2023-03-24 19:10] VITALS: BP 135/63; TEMP 99.3; O2SAT 99
[2023-03-24] MEDS: ZOLPIDEM TARTRATE 10 MG TABLET PO PRN (20:27)
[2023-03-25 07:00] VITALS: BP 134/78; TEMP 97.7; O2SAT 96
[2023-03-25] MEDS: AMLODIPINE 5 MG PO SCH (08:41)
[2023-03-25 16:00] VITALS: BP 125/81; TEMP 98.4; O2SAT 99
[2023-03-25 20:00] VITALS: BP 147/89; TEMP 98; TEMP 98.1; O2SAT 99
[2023-03-25] MEDS ORDERED: ZOLPIDEM TARTRATE 10 MG TABLET ONE (21:20)
[2023-03-25] MEDS: ZOLPIDEM TARTRATE 10 MG TABLET PO PRN (21:21)
[2023-03-26 07:30] VITALS: BP 140/85; O2SAT 100
[2023-03-26] MEDS: AMLODIPINE 5 MG PO SCH ×2 (09:00→13:58)
[2023-03-26] MEDS: ZOLPIDEM TARTRATE 10 MG TABLET PO PRN (21:10)
[2023-03-27 04:00] VITALS: BP 132/86; TEMP 97.8; O2SAT 96
[2023-03-27 08:00] VITALS: BP 136/88; TEMP 98.4; TEMP 98.8; O2SAT 97
[2023-03-27] MEDS: AMLODIPINE 5 MG PO SCH (08:50)
[2023-03-27 18:17] VITALS: BP 132/86; TEMP 98.9; O2SAT 96
[2023-03-27 20:00] VITALS: BP 142/84; TEMP 98; O2SAT 96
[2023-03-27] MEDS: ZOLPIDEM TARTRATE 10 MG TABLET PO PRN (21:47)
[2023-03-28 07:00] VITALS: BP 137/69; TEMP 98.5; O2SAT 97
[2023-03-28] MEDS: AMLODIPINE 5 MG PO SCH (09:21)
[2023-03-28 16:00] VITALS: BP 145/91; TEMP 98; O2SAT 95
[2023-03-28 19:00] VITALS: BP 117/60; TEMP 98.9; O2SAT 98
[2023-03-28 20:00] VITALS: BP 117/60; TEMP 98.9; O2SAT 98
[2023-03-28] MEDS: ZOLPIDEM TARTRATE 10 MG TABLET PO PRN ×2 (21:23→21:37)
[2023-03-29 07:00] VITALS: BP 122/68; TEMP 97.9; O2SAT 96
[2023-03-29] MEDS: AMLODIPINE 5 MG PO SCH (08:06)
[2023-03-29 16:00] VITALS: BP 146/81; TEMP 98.7; O2SAT 96
[2023-03-29] MEDS: ZOLPIDEM TARTRATE 10 MG TABLET PO PRN (20:55)
[2023-03-29 21:00] VITALS: BP 121/68; TEMP 98.9; O2SAT 97
[2023-03-30 08:00] VITALS: BP 134/93; TEMP 98.1; O2SAT 98
[2023-03-30] MEDS: AMLODIPINE 5 MG PO SCH (08:19)
[2023-03-30 16:00] VITALS: BP 121/71; TEMP 98.1; O2SAT 94
[2023-03-30 20:00] VITALS: BP 115/62; TEMP 97.9; O2SAT 95
[2023-03-31 08:00] VITALS: BP 109/67; TEMP 98.3; O2SAT 98
[2023-03-31] MEDS: AMLODIPINE 5 MG PO SCH (10:21)
[2023-03-31] MEDS ORDERED: ZOLPIDEM TARTRATE 10 MG TABLET PO PRN (13:00)
[2023-03-31] MEDS ORDERED: LORAZEPAM 1 MG TABLET FOR AGITATION PO PRN (13:00)
[2023-03-31 20:00] VITALS: BP 128/73; TEMP 98.8; O2SAT 95
[2023-04-01 07:00] VITALS: BP 126/69; TEMP 98.1; O2SAT 100
[2023-04-01] MEDS: AMLODIPINE 5 MG PO SCH ×2 (08:31→10:02)
[2023-04-01 16:00] VITALS: BP 141/87; TEMP 98.9; O2SAT 98
[2023-04-02 08:00] VITALS: BP 136/86; TEMP 98; O2SAT 98
[2023-04-02] MEDS: AMLODIPINE 5 MG PO SCH (09:26)
[2023-04-02 16:00] VITALS: BP 135/71; TEMP 97.9; O2SAT 96
[2023-04-03 08:00] VITALS: BP 145/95; TEMP 97.9; O2SAT 97
[2023-04-03] MEDS: AMLODIPINE 5 MG PO SCH (10:58)
[2023-04-03 16:00] VITALS: BP 143/89; TEMP 98.4; O2SAT 99
[2023-04-03 20:00] VITALS: BP 133/81; TEMP 98.2; O2SAT 98
[2023-04-04 07:00] VITALS: BP 131/87; TEMP 97.9; O2SAT 95
[2023-04-04] MEDS: AMLODIPINE 5 MG PO SCH (09:00)
[2023-04-04 16:00] VITALS: BP 135/74; TEMP 98.4; O2SAT 99
[2023-04-04 20:00] VITALS: BP 135/82; TEMP 98.4; O2SAT 98
[2023-04-05 08:00] VITALS: BP 133/75; TEMP 98; O2SAT 97
[2023-04-05] MEDS: AMLODIPINE 5 MG PO SCH ×2 (09:00→09:23)
[2023-04-05 16:00] VITALS: BP 125/78; TEMP 98.4; O2SAT 99
[2023-04-05 20:00] VITALS: BP 128/85; TEMP 98.2; O2SAT 97
[2023-04-06 07:00] VITALS: BP 138/77; TEMP 97.6; O2SAT 98
[2023-04-06] MEDS: AMLODIPINE 5 MG PO SCH (09:00)
[2023-04-06 16:00] VITALS: BP 137/81; TEMP 98.2; O2SAT 96
[2023-04-07 07:00] VITALS: BP 118/71; TEMP 98.5; O2SAT 94
[2023-04-07] MEDS: AMLODIPINE 5 MG PO SCH (08:34)
[2023-04-07] MEDS ORDERED: ZOLPIDEM TARTRATE 10 MG TABLET PO PRN (13:00)
[2023-04-07] MEDS ORDERED: LORAZEPAM 1 MG TABLET FOR AGITATION PO PRN (13:00)
[2023-04-07 16:00] VITALS: BP 126/75; TEMP 97.8; O2SAT 95
[2023-04-07 20:00] VITALS: BP 145/83; TEMP 98.1; O2SAT 96
[2023-04-08 07:00] VITALS: BP 142/95; TEMP 98; O2SAT 95
[2023-04-08] MEDS: AMLODIPINE 5 MG PO SCH (09:08)
[2023-04-08 20:00] VITALS: BP 136/79; TEMP 98.6; O2SAT 96
[2023-04-08 22:00] VITALS: BP 139/79; TEMP 98.6; O2SAT 95
[2023-04-09] MEDS: AMLODIPINE 5 MG PO SCH (09:00)
[2023-04-09 12:00] VITALS: BP 127/82; TEMP 98.7; O2SAT 96
[2023-04-09 20:00] VITALS: BP 121/57; TEMP 98.6; O2SAT 97
[2023-04-10] MEDS: AMLODIPINE 5 MG PO SCH (10:25)
[2023-04-10 16:05] VITALS: BP 122/68; TEMP 98.3; O2SAT 94
[2023-04-11] MEDS: AMLODIPINE 5 MG PO SCH (09:31)
[2023-04-11 16:00] VITALS: BP 144/87; TEMP 97.9; O2SAT 97
[2023-04-11 20:00] VITALS: BP 149/94; TEMP 97.9; O2SAT 99
[2023-04-12 07:00] VITALS: BP 133/76; TEMP 98.2; O2SAT 96
[2023-04-12] MEDS: AMLODIPINE 5 MG PO SCH (08:03)
[2023-04-12 16:00] VITALS: BP 136/92; TEMP 98.7; O2SAT 95
[2023-04-12 21:00] VITALS: BP 135/76; TEMP 97.9; O2SAT 96
[2023-04-13 08:00] VITALS: BP 153/87; TEMP 98.4; O2SAT 98
[2023-04-13] MEDS: AMLODIPINE 5 MG PO SCH (08:20)
[2023-04-13 16:07] VITALS: BP 128/77; TEMP 96.8; O2SAT 99
[2023-04-13 20:00] VITALS: BP 144/81; TEMP 97.7; O2SAT 98
[2023-04-14] MEDS: AMLODIPINE 5 MG PO SCH (09:00)
[2023-04-14] MEDS ORDERED: LORAZEPAM 1 MG TABLET FOR AGITATION PO PRN (13:00)
[2023-04-14] MEDS ORDERED: ZOLPIDEM TARTRATE 10 MG TABLET PO PRN (13:00)
[2023-04-14 16:00] VITALS: BP 143/84; TEMP 98.1; O2SAT 94
[2023-04-15 07:30] VITALS: BP 138/82; TEMP 97.3; O2SAT 100
[2023-04-15] MEDS: AMLODIPINE 5 MG PO SCH ×2 (09:00→09:18)
[2023-04-15 16:00] VITALS: BP 140/88; TEMP 98.1; O2SAT 97
[2023-04-15 21:33] VITALS: BP 138/80; TEMP 98.1; O2SAT 98
[2023-04-16 07:30] VITALS: BP 132/84; TEMP 97.7; O2SAT 100
[2023-04-16] MEDS: AMLODIPINE 5 MG PO SCH ×2 (08:09→09:00)
[2023-04-16 20:00] VITALS: BP 153/80; TEMP 97.7; O2SAT 98
[2023-04-17 08:00] VITALS: BP 114/79; TEMP 98.5; O2SAT 100
[2023-04-17] MEDS: AMLODIPINE 5 MG PO SCH (09:05)
[2023-04-17 16:00] VITALS: BP 109/71; TEMP 98.6; O2SAT 97
[2023-04-17 20:00] VITALS: BP 133/89; TEMP 98; O2SAT 97
[2023-04-18 07:30] VITALS: BP 137/83; TEMP 98.1; O2SAT 98
[2023-04-18] MEDS: AMLODIPINE 5 MG PO SCH (09:00)
[2023-04-18 16:00] VITALS: BP 142/83; TEMP 98.8; O2SAT 96
[2023-04-18 20:00] VITALS: BP 143/90; TEMP 98.2; O2SAT 98
[2023-04-19 07:00] VITALS: BP 139/76; TEMP 98; O2SAT 99
[2023-04-19] MEDS: AMLODIPINE 5 MG PO SCH ×2 (08:10→08:20)
[2023-04-19 16:00] VITALS: BP 131/82; TEMP 98.2; O2SAT 99
[2023-04-20 08:00] VITALS: BP 121/83; TEMP 97.9; O2SAT 97
[2023-04-20] MEDS: AMLODIPINE 5 MG PO SCH (09:00)
[2023-04-20 16:00] VITALS: BP 123/75; TEMP 98.2; O2SAT 97
[2023-04-21 07:30] VITALS: BP 132/88; TEMP 98.6; O2SAT 98
[2023-04-21] MEDS: AMLODIPINE 5 MG PO SCH (09:00)
[2023-04-21] MEDS: ZOLPIDEM TARTRATE 10 MG TABLET PO PRN (19:56)
[2023-04-21 20:00] VITALS: BP 130/79; TEMP 97.8; O2SAT 95
[2023-04-22 07:30] VITALS: BP 138/87; TEMP 97.5; O2SAT 100
[2023-04-22] MEDS: AMLODIPINE 5 MG PO SCH (09:31)
[2023-04-22 20:00] VITALS: BP 140/85; TEMP 98.1; O2SAT 97
[2023-04-22] MEDS: ZOLPIDEM TARTRATE 10 MG TABLET PO PRN (20:07)
[2023-04-23] MEDS: LORAZEPAM 1 MG TABLET FOR AGITATION PO PRN ×2 (00:20→20:11)
[2023-04-23] MEDS: AMLODIPINE 5 MG PO SCH (09:37)
[2023-04-23] MEDS ORDERED: LORAZEPAM 1 MG TABLET ONE (20:10)
[2023-04-24 08:00] VITALS: BP 130/80; TEMP 97.5; O2SAT 99
[2023-04-24] MEDS: AMLODIPINE 5 MG PO SCH ×3 (09:00→15:26)
[2023-04-24 20:00] VITALS: BP 140/85; TEMP 98.4; O2SAT 96
[2023-04-24] MEDS: ZOLPIDEM TARTRATE 10 MG TABLET PO PRN ×2 (20:40→22:45)
[2023-04-24] MEDS: LORAZEPAM 1 MG TABLET FOR AGITATION PO PRN (20:50)
[2023-04-25 20:00] VITALS: BP 133/81; TEMP 98.8; O2SAT 98
[2023-04-25] MEDS: ZOLPIDEM TARTRATE 10 MG TABLET PO PRN (20:28)
[2023-04-25 20:45] VITALS: BP 133/81; TEMP 98.8; O2SAT 98
[2023-04-26 07:30] VITALS: BP 136/91; TEMP 97.5; O2SAT 97
[2023-04-26] MEDS: AMLODIPINE 5 MG PO SCH (11:04)
[2023-04-26 16:00] VITALS: BP 142/87; TEMP 98.6; O2SAT 97
[2023-04-26 20:00] VITALS: BP 139/79; TEMP 98.4; O2SAT 97
[2023-04-26] MEDS: ZOLPIDEM TARTRATE 10 MG TABLET PO PRN (20:20)
[2023-04-27] MEDS: AMLODIPINE 5 MG PO SCH (09:00)
[2023-04-27 20:00] VITALS: BP 143/94; TEMP 98.2; O2SAT 97
[2023-04-27] MEDS: ZOLPIDEM TARTRATE 10 MG TABLET PO PRN (20:07)
[2023-04-28] MEDS: AMLODIPINE 5 MG PO SCH ×2 (09:00→09:22)
[2023-04-28 19:30] VITALS: BP 167/83; TEMP 98.9; O2SAT 95
[2023-04-28] MEDS: LORAZEPAM 1 MG TABLET FOR AGITATION PO PRN (20:14)
[2023-04-28] MEDS: ZOLPIDEM TARTRATE 10 MG TABLET PO PRN (23:31)
[2023-04-29 08:00] VITALS: BP 156/97; TEMP 98.1; O2SAT 95
[2023-04-29] MEDS: AMLODIPINE 5 MG PO SCH (10:02)
[2023-04-29 16:00] VITALS: BP 142/90; TEMP 97.9; O2SAT 95
[2023-04-29 20:00] VITALS: BP 138/88; TEMP 98.1; O2SAT 98
[2023-04-29] MEDS: ZOLPIDEM TARTRATE 10 MG TABLET PO PRN (20:26)
[2023-04-29] MEDS: LORAZEPAM 1 MG TABLET FOR AGITATION PO PRN (21:57)
[2023-04-30 08:00] VITALS: BP 139/95; TEMP 97.7; O2SAT 95
[2023-04-30] MEDS: AMLODIPINE 5 MG PO SCH (08:18)
[2023-04-30 20:00] VITALS: BP 148/88; TEMP 98.2; O2SAT 99
[2023-04-30] MEDS: ZOLPIDEM TARTRATE 10 MG TABLET PO PRN (20:16)
[2023-04-30] MEDS: LORAZEPAM 1 MG TABLET FOR AGITATION PO PRN (22:35)
[2023-05-01 08:00] VITALS: BP 107/69; TEMP 98.2; O2SAT 97
[2023-05-01] MEDS: AMLODIPINE 5 MG PO SCH (09:00)
[2023-05-01 16:08] VITALS: BP 111/71; TEMP 98.2; O2SAT 97
[2023-05-01 20:00] VITALS: BP 143/90; TEMP 98.1; O2SAT 97
[2023-05-01 20:01] VITALS: BP 143/90; TEMP 98.1; O2SAT 97
[2023-05-01] MEDS: ZOLPIDEM TARTRATE 10 MG TABLET PO PRN (20:18)
[2023-05-01] MEDS: LORAZEPAM 1 MG TABLET FOR AGITATION PO PRN (22:25)
[2023-05-02] MEDS: AMLODIPINE 5 MG PO SCH (11:00)
[2023-05-02 20:00] VITALS: BP 126/83; TEMP 98.1; O2SAT 98
[2023-05-02] MEDS: ZOLPIDEM TARTRATE 10 MG TABLET PO PRN (20:03)
[2023-05-02] MEDS: LORAZEPAM 1 MG TABLET FOR AGITATION PO PRN (22:05)
[2023-05-03 08:00] VITALS: BP 133/86; TEMP 98.6; O2SAT 95
[2023-05-03] MEDS: AMLODIPINE 5 MG PO SCH (08:54)
[2023-05-03 20:00] VITALS: BP 136/77; TEMP 98.6; O2SAT 97
[2023-05-03] MEDS: ZOLPIDEM TARTRATE 10 MG TABLET PO PRN (20:40)
[2023-05-04] MEDS: LORAZEPAM 1 MG TABLET FOR AGITATION PO PRN (06:06)
[2023-05-04 07:00] VITALS: BP 127/89; TEMP 98; O2SAT 99
[2023-05-04] MEDS: AMLODIPINE 5 MG PO SCH (08:05)
[2023-05-04 16:00] VITALS: BP 126/75; TEMP 97.9; O2SAT 99
[2023-05-04 20:00] VITALS: BP 130/85; TEMP 97.5; O2SAT 98
[2023-05-04] MEDS: ZOLPIDEM TARTRATE 10 MG TABLET PO PRN (22:00)
[2023-05-05 08:00] VITALS: BP 137/87; TEMP 97.7; O2SAT 95
[2023-05-05] MEDS: AMLODIPINE 5 MG PO SCH (08:07)
[2023-05-05 20:00] VITALS: BP 133/68; TEMP 98; O2SAT 96
[2023-05-05] MEDS: ZOLPIDEM TARTRATE 10 MG TABLET PO PRN (20:32)
[2023-05-06 07:00] VITALS: BP 132/86; TEMP 97.9; O2SAT 100
[2023-05-06] MEDS: AMLODIPINE 5 MG PO SCH (09:06)
[2023-05-06 16:00] VITALS: BP 136/84; TEMP 97.9; O2SAT 98
[2023-05-06 20:33] VITALS: BP 140/88; TEMP 99; O2SAT 98
[2023-05-06] MEDS: ZOLPIDEM TARTRATE 10 MG TABLET PO PRN (21:17)
[2023-05-07 07:30] VITALS: BP 142/84; TEMP 98.1; O2SAT 96
[2023-05-07] MEDS: AMLODIPINE 5 MG PO SCH (09:56)
[2023-05-07 16:00] VITALS: BP 142/88; TEMP 98.2; O2SAT 96
[2023-05-07] MEDS: ZOLPIDEM TARTRATE 10 MG TABLET PO PRN (20:02)
[2023-05-07] MEDS: LORAZEPAM 1 MG TABLET FOR AGITATION PO PRN (22:41)
[2023-05-08 08:00] VITALS: BP 138/88; TEMP 98.1; O2SAT 96
[2023-05-08] MEDS: AMLODIPINE 5 MG PO SCH (09:00)
[2023-05-08 16:00] VITALS: BP 121/75; TEMP 98.4; O2SAT 96
[2023-05-08 20:00] VITALS: BP 133/81; TEMP 98.8; O2SAT 96
[2023-05-08] MEDS: ZOLPIDEM TARTRATE 10 MG TABLET PO PRN (20:26)
[2023-05-08] MEDS: LORAZEPAM 1 MG TABLET FOR AGITATION PO PRN (21:32)
[2023-05-09 08:35] VITALS: BP 140/79; TEMP 97.9; O2SAT 99
[2023-05-09] MEDS: AMLODIPINE 5 MG PO SCH (09:00)
[2023-05-09 16:00] VITALS: BP 126/74; TEMP 98; O2SAT 99
[2023-05-09] MEDS: ZOLPIDEM TARTRATE 10 MG TABLET PO PRN (20:01)
[2023-05-09 21:23] VITALS: BP 131/81; TEMP 98.4; O2SAT 99
[2023-05-09] MEDS: LORAZEPAM 1 MG TABLET FOR AGITATION PO PRN (22:53)
[2023-05-10 07:00] VITALS: BP 130/95; TEMP 98; O2SAT 99
[2023-05-10] MEDS: AMLODIPINE 5 MG PO SCH (09:00)
[2023-05-10 16:00] VITALS: BP 128/86; TEMP 97.8; O2SAT 99
[2023-05-10 20:00] VITALS: BP 140/76; TEMP 97.9; O2SAT 98
[2023-05-10] MEDS: ZOLPIDEM TARTRATE 10 MG TABLET PO PRN (20:55)
[2023-05-10] MEDS: LORAZEPAM 1 MG TABLET FOR AGITATION PO PRN (21:40)
[2023-05-11 08:00] VITALS: BP 146/93; TEMP 98.1; O2SAT 96
[2023-05-11] MEDS: AMLODIPINE 5 MG PO SCH (09:00)
[2023-05-11 16:00] VITALS: BP 129/79; TEMP 97.9; O2SAT 98
[2023-05-11 20:00] VITALS: BP 125/69; TEMP 98.4; O2SAT 96
[2023-05-12 08:00] VITALS: BP 127/74; TEMP 98.2; O2SAT 98
[2023-05-12] MEDS: AMLODIPINE 5 MG PO SCH (08:40)
[2023-05-12 16:00] VITALS: BP 131/73; TEMP 98.2; O2SAT 96
[2023-05-12 20:00] VITALS: BP 101/61; TEMP 98.2; O2SAT 96
[2023-05-12] MEDS: ZOLPIDEM TARTRATE 10 MG TABLET PO PRN (21:24)
[2023-05-12] MEDS: LORAZEPAM 1 MG TABLET FOR AGITATION PO PRN (23:02)
[2023-05-13 07:30] VITALS: BP 114/64; TEMP 97.9; O2SAT 95
[2023-05-13] MEDS: AMLODIPINE 5 MG PO SCH (09:00)
[2023-05-13 20:00] VITALS: BP 136/81; TEMP 98.1; O2SAT 97
[2023-05-13] MEDS: ZOLPIDEM TARTRATE 10 MG TABLET PO PRN (21:09)
[2023-05-13] MEDS: LORAZEPAM 1 MG TABLET FOR AGITATION PO PRN (23:24)
[2023-05-14 07:00] VITALS: BP 127/81; TEMP 98.1; O2SAT 98
[2023-05-14] MEDS: AMLODIPINE 5 MG PO SCH (08:14)
[2023-05-14 16:00] VITALS: BP 125/84; TEMP 98.1; O2SAT 99
[2023-05-14 20:00] VITALS: BP 149/87; TEMP 98.1; O2SAT 92
[2023-05-14] MEDS: LORAZEPAM 1 MG TABLET FOR AGITATION PO PRN (20:44)
[2023-05-15 08:00] VITALS: BP 136/81; TEMP 98.2; O2SAT 98
[2023-05-15] MEDS: AMLODIPINE 5 MG PO SCH (14:47)
[2023-05-15 16:00] VITALS: BP 139/100; TEMP 99.1; O2SAT 98
[2023-05-15 20:00] VITALS: BP 125/68; TEMP 98.8; O2SAT 98
[2023-05-15] MEDS: LORAZEPAM 1 MG TABLET FOR AGITATION PO PRN (20:36)
[2023-05-16 07:00] VITALS: BP 138/78; TEMP 98.1; O2SAT 97
[2023-05-16] MEDS: AMLODIPINE 5 MG PO SCH (15:21)
[2023-05-16 16:00] VITALS: BP 135/84; TEMP 98.1; O2SAT 99
[2023-05-16 20:00] VITALS: BP 130/81; TEMP 97.9; O2SAT 100
[2023-05-16] MEDS: LORAZEPAM 1 MG TABLET FOR AGITATION PO PRN (21:08)
[2023-05-17] MEDS: AMLODIPINE 5 MG PO SCH (15:52)
[2023-05-17 15:56] VITALS: BP 121/70; TEMP 98.8; O2SAT 97
[2023-05-17] MEDS: LORAZEPAM 1 MG TABLET FOR AGITATION PO PRN (20:54)
[2023-05-18] MEDS: AMLODIPINE 5 MG PO SCH (09:00)
[2023-05-18 16:00] VITALS: BP 144/72; TEMP 98.4; O2SAT 93
[2023-05-18 20:00] VITALS: BP 136/95; TEMP 98.1; O2SAT 98
[2023-05-18] MEDS: LORAZEPAM 1 MG TABLET FOR AGITATION PO PRN (21:15)
[2023-05-19 07:00] VITALS: BP 112/62; TEMP 98.1; O2SAT 94
[2023-05-19] MEDS: AMLODIPINE 5 MG PO SCH (09:20)
== END 2023-05-19 15:00 | disposition home or self-care (01) | DRG 951 ==
LOC: MED 14:07
PROVIDERS: ADMIT Psychiatry & Neurology Psychiatry; ATTEND Psychiatry & Neurology Psychiatry
DX: Z00.6 Encounter for examination for normal comparison and control in clinical research program (principal); F20.0 Paranoid schizophrenia; Z79.899 Other long term (current) drug therapy; Z82.0 Family history of epilepsy and other diseases of the nervous system; Z81.8 Family history of other mental and behavioral disorders; I10 Essential (primary) hypertension; F41.9 Anxiety disorder, unspecified; G47.00 Insomnia, unspecified
CPT/HCPCS: G0378

== ENCOUNTER 2025-03-16 10:03 | Inpatient (IN) | payer OTHER ==
[~2025-03-16] VITALS: Ht 170.2 cm; Wt 83.9 kg
[2025-03-16] MEDS ORDERED: MAGNESIUM HYDROXIDE 30 ML UDC PO PRN (15:30)
[2025-03-16] MEDS ORDERED: MAG HYDROX/AL HYDROX/SIMETH 30 ML UDC PO PRN (15:30)
[2025-03-16] MEDS ORDERED: IBUPROFEN 200 MG TABLET PO PRN (15:30)
[2025-03-16] MEDS ORDERED: LORAZEPAM 1 MG TABLET FOR AGITATION PO PRN (15:30)
[2025-03-16] MEDS ORDERED: ACETAMINOPHEN ES 500 MG TABLET PO PRN (15:30)
[2025-03-16 16:00] VITALS: BP 130/68; TEMP 98.4; O2SAT 96
[2025-03-16] MEDS: AMLODIPINE 5 MG PO SCH (18:34)
[2025-03-16 20:00] VITALS: BP 130/64; TEMP 98.5; O2SAT 97
[2025-03-16] MEDS: HOME MED MISCELLANEOUS (RISPERIDONE 3MG) PO SCH (21:20)
[2025-03-17 08:00] VITALS: BP 138/78; TEMP 98.1; O2SAT 97
[2025-03-17 17:56] VITALS: BP 141/82; TEMP 98.1; O2SAT 99
[2025-03-17 20:00] VITALS: BP 151/60; TEMP 97.9; O2SAT 100
[2025-03-17] MEDS: HOME MED MISCELLANEOUS (RISPERIDONE 2 MG) PO SCH (21:11)
[2025-03-18 08:00] VITALS: BP 142/84; TEMP 98.1; O2SAT 99
[2025-03-18 16:00] VITALS: BP 139/75; TEMP 97.9; O2SAT 99
[2025-03-19 08:00] VITALS: BP 131/72; TEMP 98.2; O2SAT 98
[2025-03-19 17:45] VITALS: BP 136/74
[2025-03-19] MEDS: HOME MED MISCELLANEOUS (RISPERIDONE 1 MG) PO SCH (21:07)
[2025-03-19 21:28] VITALS: BP 146/80; TEMP 98.4; O2SAT 95
[2025-03-20 08:00] VITALS: BP 139/79; TEMP 98.8; O2SAT 100
[2025-03-20 16:00] VITALS: BP 127/76; TEMP 98.4; O2SAT 98
[2025-03-20 20:00] VITALS: BP 136/74; TEMP 98.2; O2SAT 95
[2025-03-20] MEDS: RISPERIDONE 1 MG PO SCH (21:01)
[2025-03-21 08:00] VITALS: BP 131/73; TEMP 98.4; O2SAT 95
[2025-03-21 16:00] VITALS: BP 132/78; TEMP 98; O2SAT 99
[2025-03-21 20:00] VITALS: BP 129/80; TEMP 98.1; O2SAT 99
[2025-03-22 07:30] VITALS: BP 123/74; TEMP 98.8; O2SAT 97
[2025-03-22 16:00] VITALS: BP 135/75; TEMP 98.1; O2SAT 100
[2025-03-22 20:00] VITALS: BP 138/81; TEMP 98.1; O2SAT 96
[2025-03-22] MEDS: ZOLPIDEM TARTRATE 10 MG TABLET PO PRN (22:07)
[2025-03-23 07:30] VITALS: BP 132/88; TEMP 98.1; O2SAT 97
[2025-03-23 20:00] VITALS: BP 134/75; TEMP 98.1; O2SAT 97
[2025-03-24 08:00] VITALS: BP 139/81; TEMP 97.9; O2SAT 98
[2025-03-24 16:00] VITALS: BP 126/78; TEMP 98.2; O2SAT 97
[2025-03-24 20:00] VITALS: BP 125/77; TEMP 97.9; O2SAT 97
[2025-03-25 08:00] VITALS: BP 129/70; TEMP 98.2; O2SAT 96
[2025-03-25 16:00] VITALS: BP 123/73; TEMP 97.9; O2SAT 97
[2025-03-25 20:00] VITALS: BP 144/79; TEMP 98.1; O2SAT 100
[2025-03-25 20:07] VITALS: BP 144/79; TEMP 98.1; O2SAT 100
[2025-03-26 08:00] VITALS: BP 120/90; TEMP 98.4; O2SAT 98
[2025-03-26 16:00] VITALS: BP 133/76; TEMP 97.9; O2SAT 96
[2025-03-26 20:00] VITALS: BP 142/80; TEMP 98.1; O2SAT 97
[2025-03-27 20:58] VITALS: BP 137/74; TEMP 97.9; O2SAT 99
[2025-03-28 07:30] VITALS: BP 141/90; TEMP 97.2; O2SAT 99
[2025-03-28 07:55] VITALS: BP 141/90; TEMP 97.2; O2SAT 99
[2025-03-28 16:00] VITALS: BP 133/78; TEMP 98.2; O2SAT 96
[2025-03-28 20:00] VITALS: BP 139/76; TEMP 98.1; O2SAT 100
[2025-03-29 07:30] VITALS: BP 134/80; TEMP 98.8; O2SAT 96
[2025-03-29 20:00] VITALS: BP 130/72; TEMP 97.7; O2SAT 98
[2025-03-30 07:30] VITALS: BP 125/77; TEMP 97.1; O2SAT 98
[2025-03-30] MEDS ORDERED: LORAZEPAM 1 MG TABLET FOR AGITATION PO PRN (13:00)
[2025-03-30] MEDS ORDERED: [UNRECOGNIZED DRUG - REMARK] PO SCH (15:00)
[2025-03-30 16:00] VITALS: BP 141/84; TEMP 97.9; O2SAT 96
[2025-03-30 20:00] VITALS: BP 138/76; TEMP 97.5; O2SAT 96
[2025-03-30] MEDS: INVEST MED OTSUKA 382-201-00035 PO SCH (20:03)
[2025-03-31 20:00] VITALS: BP 131/74; TEMP 98.1; O2SAT 98
[2025-03-31] MEDS: ZOLPIDEM TARTRATE 10 MG TABLET PO PRN (22:39)
[2025-04-01 20:00] VITALS: BP 129/75; TEMP 98.8; O2SAT 95
[2025-04-02 09:08] VITALS: BP 118/65; TEMP 98.6; O2SAT 95
[2025-04-02 20:00] VITALS: BP 125/77; TEMP 97.7; O2SAT 96
[2025-04-03 08:00] VITALS: BP 130/76; TEMP 97.7; O2SAT 96
[2025-04-03 20:00] VITALS: BP 128/78; TEMP 97.9; O2SAT 96
[2025-04-03 20:15] VITALS: BP 128/78; TEMP 97.9; O2SAT 98
[2025-04-04 08:00] VITALS: BP 133/86; TEMP 97.9; O2SAT 99
[2025-04-04 20:00] VITALS: BP 121/77; TEMP 97.9; O2SAT 96
[2025-04-05 08:00] VITALS: BP 128/76; O2SAT 99
[2025-04-05 17:12] VITALS: BP 125/79
[2025-04-05 20:00] VITALS: BP 126/69; TEMP 97.9; O2SAT 96
[2025-04-06 08:56] VITALS: BP 128/80; TEMP 98.1; O2SAT 100
[2025-04-06] MEDS ORDERED: LORAZEPAM 1 MG TABLET FOR AGITATION PO PRN (13:00)
[2025-04-06 20:00] VITALS: BP 129/75; TEMP 98.8; O2SAT 98
[2025-04-06] MEDS: ZOLPIDEM TARTRATE 10 MG TABLET PO PRN (22:42)
[2025-04-07 08:00] VITALS: BP 138/84; TEMP 98.1; O2SAT 98
[2025-04-07 20:00] VITALS: BP 126/75; TEMP 98.2; O2SAT 97
[2025-04-08 08:00] VITALS: BP 130/89; TEMP 98; O2SAT 98
[2025-04-08 10:49] VITALS: BP 130/89; TEMP 98; O2SAT 98
[2025-04-08 20:00] VITALS: BP 137/86; TEMP 98.1; O2SAT 97
[2025-04-08 21:36] VITALS: BP 137/86; TEMP 98.1; O2SAT 97
[2025-04-09 08:00] VITALS: BP 140/76; TEMP 98.1; O2SAT 95
[2025-04-09 10:00] VITALS: BP 140/76; TEMP 98.1; O2SAT 95
[2025-04-09 16:00] VITALS: BP 135/73; TEMP 98.2; O2SAT 98
[2025-04-09 20:00] VITALS: BP 134/80; TEMP 98.2; O2SAT 96
[2025-04-10 08:45] VITALS: BP 120/70; TEMP 98.2; O2SAT 98
[2025-04-10 16:24] VITALS: BP_SYST 129; BP_SYST 130; BP_DIAS 70; BP_DIAS 82; TEMP 97.9; TEMP 98.1; O2SAT 98
[2025-04-10 20:00] VITALS: BP 138/77; TEMP 97.9; O2SAT 99
[2025-04-11 20:41] VITALS: BP 135/85; TEMP 98.4; O2SAT 98
[2025-04-12 08:00] VITALS: BP 137/66; TEMP 97.9
[2025-04-12 20:00] VITALS: BP 134/81; TEMP 98.2; O2SAT 96
[2025-04-13] MEDS ORDERED: ZOLPIDEM TARTRATE 10 MG TABLET PO PRN (13:00)
[2025-04-13] MEDS ORDERED: LORAZEPAM 1 MG TABLET FOR AGITATION PO PRN (13:00)
[2025-04-13 16:21] VITALS: BP 128/77; TEMP 98.4; O2SAT 96
[2025-04-13 20:00] VITALS: BP 135/82; TEMP 97.5; O2SAT 96
[2025-04-14 20:00] VITALS: BP 118/53; TEMP 97.9; O2SAT 96
[2025-04-15 08:00] VITALS: BP 136/82; TEMP 98.1; O2SAT 97
[2025-04-15 16:00] VITALS: BP 111/66; TEMP 98.5; O2SAT 95
[2025-04-15 20:00] VITALS: BP 144/81; TEMP 98.1; O2SAT 97
[2025-04-16 08:54] VITALS: BP 115/62; TEMP 98; O2SAT 98
[2025-04-16 15:58] VITALS: BP 123/86; TEMP 97.9; O2SAT 100
[2025-04-17 08:00] VITALS: BP 129/79; TEMP 98; O2SAT 98
[2025-04-17 16:00] VITALS: BP 138/77; TEMP 97.5; O2SAT 98
[2025-04-17 20:00] VITALS: BP 121/72; TEMP 97.9; O2SAT 97
[2025-04-18 08:00] VITALS: BP 149/89; TEMP 97.5; O2SAT 97
[2025-04-18 15:55] VITALS: BP 126/68; TEMP 98.6; O2SAT 95
[2025-04-18 20:00] VITALS: BP 137/84; TEMP 98.1; O2SAT 98
[2025-04-19 08:00] VITALS: BP 138/86; TEMP 98.6; O2SAT 97
[2025-04-19 16:00] VITALS: BP 118/92; TEMP 98.5; O2SAT 97
[2025-04-19 20:00] VITALS: BP 126/76; TEMP 98.5; O2SAT 96
[2025-04-20 08:00] VITALS: BP 138/84; TEMP 98; O2SAT 100
[2025-04-20] MEDS ORDERED: LORAZEPAM 1 MG TABLET FOR AGITATION PO PRN (13:00)
[2025-04-20] MEDS ORDERED: ZOLPIDEM TARTRATE 10 MG TABLET PO PRN (13:00)
[2025-04-20 20:00] VITALS: BP 138/85; TEMP 98.1; O2SAT 96
[2025-04-21 07:00] VITALS: BP 134/92; TEMP 97.3; O2SAT 99
[2025-04-21 16:00] VITALS: BP 135/89; O2SAT 97
[2025-04-21 20:00] VITALS: BP 127/74; TEMP 97.7; O2SAT 98
[2025-04-22 16:00] VITALS: BP 126/77; TEMP 98.4; O2SAT 96
[2025-04-22 20:00] VITALS: BP 118/78; TEMP 97.7; O2SAT 97
[2025-04-22 23:26] VITALS: BP 118/78; TEMP 97.7; O2SAT 97
[2025-04-23 08:00] VITALS: BP 150/97; TEMP 98; O2SAT 99
[2025-04-23 20:00] VITALS: BP 129/82; TEMP 98.6; O2SAT 98
[2025-04-24 16:00] VITALS: BP 110/59; TEMP 97.9; O2SAT 99
[2025-04-24 20:00] VITALS: BP 123/83; TEMP 98.1; O2SAT 96
[2025-04-25 08:00] VITALS: BP 126/81; TEMP 98.1; O2SAT 96
[2025-04-25 20:00] VITALS: BP 143/76; TEMP 98.4; O2SAT 98
[2025-04-26 08:00] VITALS: BP 126/81; TEMP 97; O2SAT 95
[2025-04-26 16:48] VITALS: BP 106/65; O2SAT 94
[2025-04-26 20:00] VITALS: BP 142/89; TEMP 98.1; O2SAT 96
[2025-04-27 07:00] VITALS: BP 140/92; TEMP 97.9; O2SAT 100
[2025-04-27] MEDS ORDERED: LORAZEPAM 1 MG TABLET FOR AGITATION PO PRN (13:00)
[2025-04-27] MEDS ORDERED: ZOLPIDEM TARTRATE 10 MG TABLET PO PRN (13:00)
[2025-04-27 16:00] VITALS: BP 134/74; TEMP 98.2; O2SAT 100
[2025-04-27 20:00] VITALS: BP 175/97; TEMP 98.1; O2SAT 100
[2025-04-28 08:00] VITALS: BP 138/83; TEMP 98.4; O2SAT 100
[2025-04-28 16:00] VITALS: BP 136/75; TEMP 98.4; O2SAT 97
[2025-04-28 20:00] VITALS: BP 141/84; TEMP 98.4; O2SAT 97
[2025-04-29 08:00] VITALS: BP 120/85; TEMP 98.1; O2SAT 94
[2025-04-29 16:00] VITALS: BP 147/92; TEMP 98.4; O2SAT 96
[2025-04-29 20:00] VITALS: BP 131/77; O2SAT 98
[2025-04-29 20:06] VITALS: BP 131/77; O2SAT 98
[2025-04-30 08:00] VITALS: BP 132/87; TEMP 98.4; O2SAT 97
[2025-04-30 16:00] VITALS: BP 132/83; TEMP 98.4; O2SAT 98
[2025-05-01 07:00] VITALS: BP 120/77; TEMP 98.2; O2SAT 99
[2025-05-01 16:00] VITALS: BP 142/92; TEMP 97.7; O2SAT 98
[2025-05-01 20:00] VITALS: BP 132/69; TEMP 98; O2SAT 99
[2025-05-01 22:21] VITALS: BP 132/69; TEMP 98; O2SAT 99
[2025-05-02 08:00] VITALS: BP 130/80; TEMP 98.6; O2SAT 99
[2025-05-02 16:46] VITALS: BP 120/83; TEMP 98.6; O2SAT 98
[2025-05-02 21:33] VITALS: BP 120/69; TEMP 98.4; O2SAT 99
[2025-05-03 07:30] VITALS: BP 134/93; TEMP 97.9; O2SAT 98
[2025-05-04] MEDS ORDERED: ZOLPIDEM TARTRATE 10 MG TABLET PO PRN (13:00)
[2025-05-04] MEDS ORDERED: LORAZEPAM 1 MG TABLET FOR AGITATION PO PRN (13:00)
[2025-05-04 16:00] VITALS: BP 140/70; TEMP 97.5; O2SAT 98
[2025-05-04 20:00] VITALS: BP 134/81; O2SAT 98
[2025-05-05 17:33] VITALS: BP 126/78; TEMP 98.1; O2SAT 94
[2025-05-05 20:00] VITALS: BP 123/74; TEMP 98.8; O2SAT 94
[2025-05-06 07:00] VITALS: TEMP 97.2
[2025-05-06 16:00] VITALS: BP 115/55; TEMP 97.4; O2SAT 98
[2025-05-06 20:00] VITALS: BP 125/79; TEMP 97.7; O2SAT 97
[2025-05-07 07:30] VITALS: BP 144/95; TEMP 98.2; O2SAT 100
[2025-05-07 17:11] VITALS: BP 123/82; O2SAT 97
[2025-05-07 20:00] VITALS: BP 132/79; TEMP 98.1; O2SAT 96
[2025-05-08 07:30] VITALS: BP 133/81; TEMP 97.2; O2SAT 99
[2025-05-08 16:00] VITALS: BP 139/77; TEMP 97.5; O2SAT 97
[2025-05-08 20:20] VITALS: BP 117/78; O2SAT 100
[2025-05-09 07:00] VITALS: BP 125/73; TEMP 98.2; O2SAT 98
[2025-05-09 16:00] VITALS: BP 119/76; TEMP 98.2; O2SAT 100
[2025-05-09 20:00] VITALS: BP 117/67; TEMP 98.1; O2SAT 97
[2025-05-10 08:34] VITALS: BP 124/79; TEMP 97.6; O2SAT 96
[2025-05-10 20:00] VITALS: BP 122/71; O2SAT 99
[2025-05-11] MEDS ORDERED: LORAZEPAM 1 MG TABLET FOR AGITATION PO PRN (13:00)
[2025-05-11 20:00] VITALS: BP 134/81; O2SAT 100
[2025-05-11] MEDS: RISPERIDONE 1 MG PO SCH (22:07)
[2025-05-12 07:30] VITALS: BP 133/90; TEMP 97.3; O2SAT 99
[2025-05-12 16:00] VITALS: BP 134/78; TEMP 98.1; O2SAT 97
[2025-05-12 20:59] VITALS: BP 123/71; TEMP 97.8; O2SAT 98
[2025-05-13 08:00] VITALS: BP 134/90; TEMP 98.6; O2SAT 98
[2025-05-13 20:00] VITALS: BP 116/73; TEMP 97.4; O2SAT 94
[2025-05-13] MEDS: RISPERIDONE 2 MG PO SCH (22:04)
[2025-05-15 08:00] VITALS: BP 120/67; TEMP 98; O2SAT 99
[2025-05-15 16:00] VITALS: BP 108/50; TEMP 98; O2SAT 96
[2025-05-15] MEDS: RISPERIDONE PO SCH (21:50)
[2025-05-16 07:00] VITALS: BP 127/90; O2SAT 98
[2025-05-16 16:00] VITALS: BP 132/86; O2SAT 98
[2025-05-16 16:20] VITALS: BP 126/77; O2SAT 94
[2025-05-16 20:00] VITALS: BP 144/83; TEMP 98.1; O2SAT 98
[2025-05-17 21:03] VITALS: BP 139/75; O2SAT 98
[2025-05-18 08:12] VITALS: BP 134/84; TEMP 98; O2SAT 98
== END 2025-05-18 10:10 | disposition home or self-care (01) | DRG 951 ==
LOC: MED 14:11
PROVIDERS: ADMIT Psychiatry & Neurology Psychiatry; ATTEND Psychiatry & Neurology Psychiatry
DX: Z00.6 Encounter for examination for normal comparison and control in clinical research program (principal); F20.0 Paranoid schizophrenia; Z82.0 Family history of epilepsy and other diseases of the nervous system; Z82.49 Family history of ischemic heart disease and other diseases of the circulatory system; G47.00 Insomnia, unspecified; Z79.899 Other long term (current) drug therapy
CPT/HCPCS: G0378